=== PATIENT | female | born 1945 | race African-American/Black ===

== ENCOUNTER 2017-01-30 21:06 | Inpatient (IN) | payer MEDICARE, MEDICAID ==
[~2017-01-30] VITALS: Ht 162.6 cm; Wt 82.1 kg
[~2017-01-30 21:06] MED LIST: ASPI-1159 PO; BENA20TA3 PO; FURO-152 PO; IBUP-2028 PO; MULT-1146 PO; NITR0.4T49 SL; SERT50TA PO
[2017-01-30] MEDS ORDERED: MORPHINE SULFATE 2 MG/ML CPJ (NOT FOR IM USE) IV ONE (21:45)
[2017-01-30] MEDS ORDERED: SODIUM CHLORIDE 0.9% 1,000 ML IV ONE (21:45)
[2017-01-30] MEDS ORDERED: MORPHINE SULFATE 4 MG/ML CPJ (NOT FOR IM USE) IV NR (22:30)
[2017-01-30 23:03] LABS: BASOPHILS % 1.3 % (0.0-2.0); EOSINOPHILS % 3.8 % (0.0-5.0); HEMOGLOBIN. 13.7 g/dL (12.0-16.0); LYMPHOCYTES % 36.6 % (20.0-50.0); MEAN CORPUSCULAR HEMOGLOBIN 31.7 pg (28.0-32.0); MEAN CORPUSCULAR VOLUME 94.8 fL (81.0-99.0); MEAN PLATELET VOLUME 9.5 fl (7.4-10.4); MONOCYTES % 5.8 % (2.0-8.0); NEUTROPHILS % 52.5 % (40.0-76.0); PLATELET 209 x1000/uL (130-400); RED BLOOD CELL COUNT 4.33 mill/uL (4.2-5.4)
[2017-01-30 23:11] LABS: INR 1.1
[2017-01-30 23:19] LABS: CARBON DIOXIDE 31 mEq/L (21-32); CHLORIDE 106 mEq/L (98-107); TROPONIN I < 0.02 ng/mL (0.00-0.04)
[2017-01-30 23:39] LABS: CLARITY URINE CLEAR (CLEAR); COLOR URINE YELLOW (YELLOW); GLUCOSE URINE NEGATIVE (NEGATIVE); KETONES URINE NEGATIVE (NEGATIVE); LEUKOCYTE ESTERASE URINE TRACE (NEGATIVE); NITRITE URINE NEGATIVE (NEGATIVE); OCCULT BLOOD URINE NEGATIVE (NEGATIVE); PH URINE 5.5 (4.5-8.0); PROTEIN URINE NEGATIVE (NEGATIVE); SPECIFIC GRAVITY URINE 1.016 (1.005-1.030)
[2017-01-31] MEDS ORDERED: CEFTRIAXONE 1 G PREMIX 50 ML IV ONE (00:15)
[2017-01-31] MEDS ORDERED: ASPIRIN 325MG EC TABLET PO ONE (00:15)
[2017-01-31] MEDS ORDERED: IBUPROFEN 600MG TABLET PO ONE (03:00)
[2017-01-31] MEDS ORDERED: SODIUM CHLORIDE 0.9% 1,000 ML IV SCH (05:02)
[2017-01-31] MEDS ORDERED: ONDANSETRON HCL 4MG/2ML VIAL IV PRN (05:15)
[2017-01-31 09:10] VITALS: BP 139/85
[2017-01-31 16:00] VITALS: BP 161/92
[2017-01-31] MEDS ORDERED: ACETAMINOPHEN 650MG/20.3ML UDC PO PRN (16:30)
[2017-01-31] MEDS: IBUPROFEN 400MG TABLET PO PRN (17:16)
[2017-01-31 20:00] VITALS: BP 183/121
[2017-01-31 21:00] VITALS: BP 169/90
[2017-01-31] MEDS ORDERED: HYDRALAZINE 20MG/ML VIAL IV PRN (21:30)
[2017-01-31 21:45] VITALS: BP 166/88
[2017-01-31] MEDS: BENAZEPRIL 20MG TABLET PO SCH (21:56)
[2017-01-31 22:09] VITALS: BP 183/121
[2017-02-01] VITALS (7 sets, daily range): BP systolic 100–172; BP diastolic 66–101
[2017-02-01] MEDS: IBUPROFEN 400MG TABLET PO PRN ×2 (08:06→21:32)
[2017-02-01] MEDS: BENAZEPRIL 20MG TABLET PO SCH ×2 (08:15→21:10)
[2017-02-01] MEDS ORDERED: BENAZEPRIL 10MG TABLET PO SCH (09:00)
[2017-02-01] MEDS: THIAMINE HCL 100MG TABLET PO SCH (19:34)
[2017-02-01] MEDS: DILTIAZEM HCL 30MG TABLET PO SCH (19:34)
[2017-02-02] VITALS: BP 119/78
[2017-02-02] MEDS: DILTIAZEM HCL 30MG TABLET PO SCH ×5 (01:45→23:58)
[2017-02-02 04:00] VITALS: BP 111/77
[2017-02-02 08:00] VITALS: BP 109/68
[2017-02-02] MEDS: BENAZEPRIL 20MG TABLET PO SCH ×2 (08:46→20:13)
[2017-02-02] MEDS: THIAMINE HCL 100MG TABLET PO SCH (08:54)
[2017-02-02] MEDS: FUROSEMIDE 40MG/4ML VIAL IVP SCH (08:54)
[2017-02-02 20:00] VITALS: BP 100/68
[2017-02-02 23:58] VITALS: BP 92/61
[2017-02-03 00:47] LABS: VITAMIN B12 SERUM 162 pg/mL (211-911)
[2017-02-03 04:00] VITALS: BP 97/69
[2017-02-03] MEDS: DILTIAZEM HCL 30MG TABLET PO SCH ×2 (05:51→12:52)
[2017-02-03 07:38] VITALS: BP 82/53
[2017-02-03 08:10] VITALS: BP 108/72
[2017-02-03] MEDS: BENAZEPRIL 20MG TABLET PO SCH ×2 (08:18→21:00)
[2017-02-03] MEDS: THIAMINE HCL 100MG TABLET PO SCH (09:02)
[2017-02-03] MEDS: FUROSEMIDE 40MG/4ML VIAL IVP SCH (09:03)
[2017-02-03 11:51] VITALS: BP 121/70
[2017-02-03 15:48] VITALS: BP 105/70
[2017-02-03] MEDS: DILTIAZEM HCL 60MG TABLET PO SCH (18:00)
[2017-02-03 20:00] VITALS: BP 106/85
[2017-02-03] MEDS ORDERED: MAGNESIUM HYDROXIDE 400MG/5ML 30ML UDC PO PRN (23:45)
[2017-02-03] MEDS: SENNOSIDES 8.6MG TABLET PO PRN (23:57)
[2017-02-04] VITALS: BP 102/67
[2017-02-04 04:00] VITALS: BP 102/66
[2017-02-04] MEDS: DILTIAZEM HCL 60MG TABLET PO SCH ×4 (06:00→17:00)
[2017-02-04 07:39] VITALS: BP 102/63
[2017-02-04] MEDS: BENAZEPRIL 20MG TABLET PO SCH ×3 (09:00→21:03)
[2017-02-04] MEDS: THIAMINE HCL 100MG TABLET PO SCH (09:06)
[2017-02-04] MEDS: FUROSEMIDE 40MG/4ML VIAL IVP SCH (09:06)
[2017-02-04 12:00] VITALS: BP 103/80
[2017-02-04] MEDS ORDERED: IOHEXOL-350 100 ML BOTTLE ONE (15:18)
[2017-02-04 16:00] VITALS: BP 105/63
[2017-02-04] MEDS: SENNOSIDES 8.6MG TABLET PO PRN (21:00)
[2017-02-04 21:03] VITALS: BP 124/76
[2017-02-05] VITALS: BP 95/59
[2017-02-05 04:00] VITALS: BP 97/64
[2017-02-05] MEDS: DILTIAZEM HCL 60MG TABLET PO SCH ×4 (06:00→18:00)
[2017-02-05 08:00] VITALS: BP 95/58
[2017-02-05] MEDS: BENAZEPRIL 20MG TABLET PO SCH (08:18)
[2017-02-05] MEDS: THIAMINE HCL 100MG TABLET PO SCH (08:18)
[2017-02-05] MEDS: FUROSEMIDE 40MG/4ML VIAL IVP SCH (08:19)
[2017-02-05] MEDS: SENNOSIDES 8.6MG TABLET PO PRN (10:14)
[2017-02-05 12:00] VITALS: BP 101/76
[2017-02-05 15:52] VITALS: BP 99/69
[2017-02-05 18:10] VITALS: BP 92/64
== END 2017-02-05 18:45 | DRG 308 ==
LOC: ER 21:32 → 8WST 01-31 00:54 → EDBEDREQSVC 01-31 02:48 → ENRESERV 01-31 08:21 → CANBEDREQ 01-31 08:55
PROVIDERS: ADMIT Internal Medicine; ATTEND Internal Medicine
PROC: 4A00X4Z Measurement of Central Nervous Electrical Activity, External Approach (ICD-10-PCS; principal; 2017-02-04)
DX: I49.8 Other specified cardiac arrhythmias (principal); G93.41 Metabolic encephalopathy; I27.20 Pulmonary hypertension, unspecified; I13.0 Hypertensive heart and chronic kidney disease with heart failure and stage 1 through stage 4 chronic kidney disease, or unspecified chronic kidney disease; I50.32 Chronic diastolic (congestive) heart failure; R53.1 Weakness; F06.1 Catatonic disorder due to known physiological condition; I25.10 Atherosclerotic heart disease of native coronary artery without angina pectoris; K21.9 Gastro-esophageal reflux disease without esophagitis; E78.00 Pure hypercholesterolemia, unspecified; R49.0 Dysphonia; F99 Mental disorder, not otherwise specified; N18.9 Chronic kidney disease, unspecified; R62.7 Adult failure to thrive; L89.90 Pressure ulcer of unspecified site, unspecified stage; Z79.899 Other long term (current) drug therapy; Z90.710 Acquired absence of both cervix and uterus; Z91.012 Allergy to eggs; Z88.8 Allergy status to other drugs, medicaments and biological substances; Z91.018 Allergy to other foods; Z79.82 Long term (current) use of aspirin
CPT/HCPCS: 36415; 70450; 70551; 71010; 80053; 81001; 82565; 82607; 84443; 84484; 84520; 85025; 85610; 85730; 87086; 93005; 93306; 93970; 95816; 96361; 96365; 96375; 99285; A6261; J0360; J0696; J1940; J2270; J7030; Q9967

== ENCOUNTER 2018-05-18 12:51 | Inpatient (IN) | payer MEDICARE, MEDICAID ==
[~2018-05-18] VITALS: Ht 167.6 cm; Wt 60.8 kg
[~2018-05-18 12:51] MED LIST changes: +BENA20TA10 PO; -BENA20TA3 PO; +SERT50TA GT; -SERT50TA PO
[2018-05-18] MEDS ORDERED: VANCOMYCIN 1 G PREMIX 200 ML IV ONE (13:15)
[2018-05-18] MEDS ORDERED: SODIUM CHLORIDE 0.9% 1000ML BAG (SEPSIS BOLUS) IV ONE (13:15)
[2018-05-18] MEDS ORDERED: PIPERACILLIN/TAZ 3.375G PREMIX 50 ML IV ONE (13:15)
[2018-05-18] MEDS ORDERED: NOREPINEPHRINE 4 MG in DEXT 5% WATER 246 ML IV ONE ×3 (13:15→18:30)
[2018-05-18] MEDS ORDERED: NOREPINEPHRINE 4MG/250ML PMX 250 ML IV ONE (13:20)
[2018-05-18] MEDS ORDERED: LIDOCAINE HCL 1% 20ML VIAL (Pyxis) INJ ONE (13:32)
[2018-05-18] MEDS ORDERED: PROPOFOL 10MG/ML 100ML 100 ML IV SCH (13:45)
[2018-05-18 14:33] LABS: BG BASE EXCESS 0.8 mmol/L (-2.0-2.0); BG FRACTION INSPIRED OXYGEN 70; BG HCO3 ACT 22.8 mmol/L (22.0-26.0); BG PCO2 29.8 mmHg (35.0-45.0); BG PH 7.502 (7.350-7.450); BG PO2 214.2 mmHg (75.0-100.0); BG SAMPLE SITE RIGHT BRACHIAL; BG TIDAL VOLUME(mL) 450 mL; BG VENT MODE VENT - A/C; BG VENT RATE 14 set
[2018-05-18 14:56] LABS: HEMATOCRIT. 33.1 % (36.0-48.0); HEMOGLOBIN. 10.3 g/dL (12.0-16.0); MEAN CORPUSCULAR HEMOGLOBIN 29.7 pg (28.0-32.0); MEAN CORPUSCULAR VOLUME 95.3 fL (81.0-99.0); MEAN PLATELET VOLUME 8.2 fl (7.4-10.4); PLATELET 430 x1000/uL (130-400); RED BLOOD CELL COUNT 3.47 mill/uL (4.2-5.4)
[2018-05-18 15:05] LABS: CHLORIDE 108 mEq/L (98-107)
[2018-05-18 15:07] LABS: INR 1.1; PARTIAL THROMBOPLASTIN TIME 25.9 sec (23.4-31.0); PROTHROMBIN TIME 10.8 sec (9.1-11.1)
[2018-05-18] MEDS ORDERED: DOPAMINE 400MG/250ML PREMIX 250 ML IV ONE (15:15)
[2018-05-18] MEDS ORDERED: SUCCINYLCHOLINE CHLORIDE 200MG/10ML IV ONE ×2 (15:30→15:50)
[2018-05-18] MEDS ORDERED: ETOMIDATE 2MG/ML 10ML VIAL IV ONE (15:30)
[2018-05-18] MEDS ORDERED: NOREPINEPHRINE 4 MG in DEXT 5% WATER 246 ML IV NR (15:45)
[2018-05-18] MEDS ORDERED: NOREPINEPHRINE 4MG/250ML PMX 250 ML IV NR (15:45)
[2018-05-18 16:00] LABS: PLATELET ESTIMATE INCREASED
[2018-05-18] MEDS ORDERED: CLONIDINE 0.1MG TABLET PO PRN (17:15)
[2018-05-18] MEDS ORDERED: DOCUSATE SODIUM 100MG CAPSULE PO PRN (17:15)
[2018-05-18] MEDS ORDERED: GUAIFENESIN 200MG/10ML SUGAR FREE UDC PO PRN (17:15)
[2018-05-18] MEDS ORDERED: MAGNESIUM/ALUMINUM HYDROXIDE/SIMETHICONE 30ML UDC PO PRN (17:15)
[2018-05-18] MEDS ORDERED: ENOXAPARIN 40MG/0.4ML SYR SUBCUT SCH (17:15)
[2018-05-18] MEDS ORDERED: HYDROCODONE/ACETAMINOPHEN 5/325MG TABLET PO PRN (17:15)
[2018-05-18] MEDS ORDERED: VANCOMYCIN 1 G PREMIX 200 ML IV SCH (17:15)
[2018-05-18] MEDS ORDERED: DIPHENHYDRAMINE 50MG/ML VIAL IV PRN (17:15)
[2018-05-18] MEDS ORDERED: LORAZEPAM 2MG/ML CPJ IV PRN (17:15)
[2018-05-18] MEDS ORDERED: ONDANSETRON HCL 4MG/2ML INJ IV PRN (17:15)
[2018-05-18 18:10] LABS: CLARITY URINE TURBID (CLEAR); COLOR URINE ORANGE (YELLOW); KETONES URINE NEGATIVE (NEGATIVE); LEUKOCYTE ESTERASE URINE 3+ (NEGATIVE); NITRITE URINE NEGATIVE (NEGATIVE); OCCULT BLOOD URINE 3+ (NEGATIVE); PH URINE 8.5 (4.5-8.0); PROTEIN URINE 3+ (NEGATIVE)
[2018-05-18] MEDS ORDERED: IBUPROFEN 100MG/5ML UDC PO ONE (18:15)
[2018-05-18 23:00] VITALS: BP 98/45
[2018-05-18] MEDS ORDERED: PROPOFOL 10MG/ML 100ML 100 ML IV PRN (23:00)
[2018-05-18 23:49] LABS: CREATINE KINASE MB FRACTION 3.3 ng/mL (0.5-3.6)
[2018-05-19] VITALS (97 sets, daily range): BP systolic 66–143; BP diastolic 40–90
[2018-05-19] MEDS ORDERED: HYDROMORPHONE HCL/PF 2MG/ML CPJ IV PRN (00:10)
[2018-05-19] MEDS ORDERED: NOREPINEPHRINE 32 MG in DEXT 5% WATER 468 ML IV PRN (00:30)
[2018-05-19] MEDS: NOREPINEPHRINE 32 MG in DEXT 5% WATER 468 ML IV PRN ×2 (00:49→22:49)
[2018-05-19] MEDS: PIPERACILLIN/TAZ 2.25G PREMIX 50 ML IV SCH ×3 (00:50→12:24)
[2018-05-19] MEDS: SODIUM CHLORIDE 0.9% INJ 3ML FLUSH IVF SCH ×4 (00:50→21:04)
[2018-05-19] MEDS: DEXT 5%/0.45% NACL 1000ML 1,000 ML IV SCH ×2 (00:50→21:04)
[2018-05-19] MEDS ORDERED: PIPERACILLIN/TAZ 3.375G PREMIX 50 ML IV SCH ×2 (01:00→18:00)
[2018-05-19 05:37] LABS: BASOPHILS % 0.5 % (0.0-2.0); EOSINOPHILS % 0.8 % (0.0-5.0); HEMATOCRIT. 30.4 % (36.0-48.0); HEMOGLOBIN. 9.8 g/dL (12.0-16.0); LYMPHOCYTES % 8.5 % (20.0-50.0); MEAN CORPUSCULAR HEMOGLOBIN 29.7 pg (28.0-32.0); MEAN CORPUSCULAR VOLUME 92.4 fL (81.0-99.0); MEAN PLATELET VOLUME 8.2 fl (7.4-10.4); MONOCYTES % 5.2 % (2.0-8.0); PLATELET 374 x1000/uL (130-400); RED BLOOD CELL COUNT 3.29 mill/uL (4.2-5.4); RED CELL DISTRIBUTION WIDTH 15.7 % (11.6-14.6)
[2018-05-19 05:39] LABS: CHLORIDE 107 mEq/L (98-107)
[2018-05-19 05:52] LABS: CREATINE KINASE MB FRACTION 4.8 ng/mL (0.5-3.6); LDL CHOLESTEROL 36 mg/dL (5-100)
[2018-05-19 05:54] LABS: CREATINE KINASE 891 IU/L (26-192); HDL CHOLESTEROL 54 mg/dL (40-59); T4 FREE 1.51 ng/dL (0.76-1.46)
[2018-05-19] MEDS ORDERED: POTASSIUM CHLORIDE 20MEQ/PACKET PO NR (08:00)
[2018-05-19] MEDS: IPRATROPIUM/ALBUTEROL 0.5-3(2.5)MG/3ML NEB INH PRN (08:52)
[2018-05-19 08:58] LABS: BG CARBOXYHEMOGLOBIN 1.1 % (0.5-1.5); BG DEOXYHEMOGLOBIN 2.9 % (0.0-5.0); BG FRACTION INSPIRED OXYGEN 50; BG HCO3 ACT 23.1 mmol/L (22.0-26.0); BG METHEMOGLOBIN 0.1 % (0.0-1.5); BG OXYGEN SATURATION 97.1 % (92.0-98.5); BG OXYHEMOGLOBIN 95.9 % (94.0-97.0); BG PCO2 28.8 mmHg (35.0-45.0); BG PH 7.523 (7.350-7.450); BG SAMPLE SITE LEFT BRACHIAL; BG TIDAL VOLUME(mL) 450 mL; BG TOTAL HEMOGLOBIN 10.4 g/dL (12.0-18.0); BG VENT MODE VENT - A/C; BG VENT RATE 14 set
[2018-05-19] MEDS ORDERED: ASPIRIN 81MG EC TABLET PO SCH (09:00)
[2018-05-19] MEDS ORDERED: PROPOFOL 10MG/ML 100ML 100 ML IV PRN (09:00)
[2018-05-19] MEDS ORDERED: ENOXAPARIN 30MG/0.3ML SYR SUBCUT SCH (09:00)
[2018-05-19] MEDS ORDERED: VANCOMYCIN 1 G PREMIX 200 ML IV SCH (10:00)
[2018-05-19] MEDS: VANCOMYCIN 1 G PREMIX 200 ML IV SCH (11:09)
[2018-05-19] MEDS: IPRATROPIUM BROMIDE (0.02%) 0.5MG/2.5ML NEB HHN SCH ×2 (15:56→20:24)
[2018-05-19] MEDS: PIPERACILLIN/TAZ 3.375G PREMIX 50 ML IV SCH (21:03)
[2018-05-20] VITALS (97 sets, daily range): BP systolic 85–145; BP diastolic 51–95
[2018-05-20] MEDS: IPRATROPIUM BROMIDE (0.02%) 0.5MG/2.5ML NEB HHN SCH ×6 (00:21→16:37)
[2018-05-20] MEDS: VANCOMYCIN 1 G PREMIX 200 ML IV SCH (03:51)
[2018-05-20] MEDS: PIPERACILLIN/TAZ 3.375G PREMIX 50 ML IV SCH ×4 (03:52→21:37)
[2018-05-20] MEDS: SODIUM CHLORIDE 0.9% INJ 3ML FLUSH IVF SCH ×3 (05:35→21:37)
[2018-05-20 06:18] LABS: BASOPHILS % 0.5 % (0.0-2.0); HEMATOCRIT. 29.3 % (36.0-48.0); HEMOGLOBIN. 9.4 g/dL (12.0-16.0); LYMPHOCYTES % 8.6 % (20.0-50.0); MEAN CORPUSCULAR HEMOGLOBIN 29.8 pg (28.0-32.0); MEAN CORPUSCULAR VOLUME 92.6 fL (81.0-99.0); MEAN PLATELET VOLUME 8.1 fl (7.4-10.4); MONOCYTES % 3.5 % (2.0-8.0); NEUTROPHILS % 86.4 % (40.0-76.0); PLATELET 322 x1000/uL (130-400); RED BLOOD CELL COUNT 3.16 mill/uL (4.2-5.4); RED CELL DISTRIBUTION WIDTH 15.9 % (11.6-14.6)
[2018-05-20 06:38] LABS: CHLORIDE 107 mEq/L (98-107)
[2018-05-20 07:02] LABS: CREATINE KINASE 1488 IU/L (26-192)
[2018-05-20 07:48] LABS: BG CARBOXYHEMOGLOBIN 0.2 % (0.5-1.5); BG DEOXYHEMOGLOBIN 0.8 % (0.0-5.0); BG FRACTION INSPIRED OXYGEN 40; BG HCO3 ACT 22.3 mmol/L (22.0-26.0); BG METHEMOGLOBIN 0.3 % (0.0-1.5); BG OXYGEN SATURATION 99.2 % (92.0-98.5); BG OXYHEMOGLOBIN 98.7 % (94.0-97.0); BG PCO2 27.9 mmHg (35.0-45.0); BG PO2 140.5 mmHg (75.0-100.0); BG SAMPLE SITE LEFT BRACHIAL; BG TIDAL VOLUME(mL) 450 mL; BG TOTAL HEMOGLOBIN 9.5 g/dL (12.0-18.0); BG VENT MODE VENT - A/C; BG VENT RATE 12 set
[2018-05-20] MEDS: DEXT 5%/0.45% NACL 1000ML 1,000 ML IV SCH (09:54)
[2018-05-20] MEDS: THIAMINE HCL 100MG TABLET GT SCH (18:24)
[2018-05-20] MEDS: PROPOFOL 10MG/ML 100ML 100 ML IV PRN (18:28)
[2018-05-20] MEDS: IPRATROPIUM/ALBUTEROL 0.5-3(2.5)MG/3ML NEB INH PRN (20:34)
[2018-05-21] VITALS (89 sets, daily range): BP systolic 72–126; BP diastolic 46–78
[2018-05-21] MEDS: IPRATROPIUM BROMIDE (0.02%) 0.5MG/2.5ML NEB HHN SCH ×7 (00:51→23:55)
[2018-05-21] MEDS: DEXT 5%/0.45% NACL 1000ML 1,000 ML IV SCH (02:06)
[2018-05-21] MEDS: PIPERACILLIN/TAZ 3.375G PREMIX 50 ML IV SCH ×4 (02:06→21:11)
[2018-05-21] MEDS: SODIUM CHLORIDE 0.9% INJ 3ML FLUSH IVF SCH ×3 (05:23→22:00)
[2018-05-21] MEDS: PROPOFOL 10MG/ML 100ML 100 ML IV PRN ×3 (05:24→22:19)
[2018-05-21 05:45] LABS: BASOPHILS % 0.4 % (0.0-2.0); EOSINOPHILS % 4.3 % (0.0-5.0); HEMATOCRIT. 26.6 % (36.0-48.0); HEMOGLOBIN. 8.5 g/dL (12.0-16.0); MEAN CORPUSCULAR HEMOGLOBIN 29.8 pg (28.0-32.0); MEAN CORPUSCULAR VOLUME 93.3 fL (81.0-99.0); MEAN PLATELET VOLUME 7.5 fl (7.4-10.4); MONOCYTES % 4.6 % (2.0-8.0); NEUTROPHILS % 79.7 % (40.0-76.0); PLATELET 287 x1000/uL (130-400); RED BLOOD CELL COUNT 2.85 mill/uL (4.2-5.4); RED CELL DISTRIBUTION WIDTH 16.1 % (11.6-14.6)
[2018-05-21 05:52] LABS: CHLORIDE 106 mEq/L (98-107)
[2018-05-21 08:41] LABS: BG CARBOXYHEMOGLOBIN 0.2 % (0.5-1.5); BG DEOXYHEMOGLOBIN 1.1 % (0.0-5.0); BG FRACTION INSPIRED OXYGEN 35; BG HCO3 ACT 25.2 mmol/L (22.0-26.0); BG METHEMOGLOBIN 0.8 % (0.0-1.5); BG OXYGEN SATURATION 98.9 % (92.0-98.5); BG OXYHEMOGLOBIN 97.9 % (94.0-97.0); BG PCO2 30.2 mmHg (35.0-45.0); BG SAMPLE SITE RIGHT BRACHIAL; BG TIDAL VOLUME(mL) 450 mL; BG TOTAL HEMOGLOBIN 9.5 g/dL (12.0-18.0); BG VENT MODE VENT - A/C; BG VENT RATE 12 set
[2018-05-21] MEDS ORDERED: POTASSIUM CHLORIDE 20MEQ/PACKET PO NR (10:00)
[2018-05-21] MEDS: PANTOPRAZOLE SODIUM 40 MG/VIAL IV SCH (10:57)
[2018-05-21] MEDS: THIAMINE HCL 100MG TABLET GT SCH ×2 (10:57→17:32)
[2018-05-21] MEDS ORDERED: VANCOMYCIN 1 G PREMIX 200 ML IV SCH (14:00)
[2018-05-21] MEDS: NOREPINEPHRINE 32 MG in DEXT 5% WATER 468 ML IV PRN (14:48)
[2018-05-22] VITALS (96 sets, daily range): BP systolic 73–165; BP diastolic 47–90
[2018-05-22] MEDS: IPRATROPIUM BROMIDE (0.02%) 0.5MG/2.5ML NEB HHN SCH ×5 (03:50→20:54)
[2018-05-22] MEDS: PIPERACILLIN/TAZ 3.375G PREMIX 50 ML IV SCH ×4 (04:18→21:03)
[2018-05-22 05:07] LABS: BG DEOXYHEMOGLOBIN 1.1 % (0.0-5.0); BG FRACTION INSPIRED OXYGEN 35; BG HCO3 ACT 23.9 mmol/L (22.0-26.0); BG METHEMOGLOBIN 0.3 % (0.0-1.5); BG OXYGEN SATURATION 98.9 % (92.0-98.5); BG OXYHEMOGLOBIN 98.6 % (94.0-97.0); BG PCO2 27.6 mmHg (35.0-45.0); BG PH 7.555 (7.350-7.450); BG PIP 21 cmH2O; BG PO2 137.4 mmHg (75.0-100.0); BG SAMPLE SITE RIGHT RADIAL; BG TIDAL VOLUME(mL) 450 mL; BG TOTAL HEMOGLOBIN 9.4 g/dL (12.0-18.0); BG VENT MODE VENT - A/C; BG VENT RATE 12 set
[2018-05-22 05:42] LABS: CHLORIDE 109 mEq/L (98-107)
[2018-05-22 05:48] LABS: PHOSPHORUS 3.1 mg/dL (2.5-4.9)
[2018-05-22 05:54] LABS: BASOPHILS % 0.4 % (0.0-2.0); EOSINOPHILS % 4.1 % (0.0-5.0); HEMATOCRIT. 27.8 % (36.0-48.0); MEAN CORPUSCULAR HEMOGLOBIN 29.7 pg (28.0-32.0); MEAN CORPUSCULAR VOLUME 91.6 fL (81.0-99.0); MEAN PLATELET VOLUME 7.6 fl (7.4-10.4); MONOCYTES % 4.3 % (2.0-8.0); NEUTROPHILS % 80.2 % (40.0-76.0); PLATELET 299 x1000/uL (130-400); RED BLOOD CELL COUNT 3.03 mill/uL (4.2-5.4)
[2018-05-22] MEDS: SODIUM CHLORIDE 0.9% INJ 3ML FLUSH IVF SCH ×3 (06:00→22:36)
[2018-05-22] MEDS ORDERED: POTASSIUM CHLORIDE 20MEQ/PACKET PO NR (07:45)
[2018-05-22] MEDS: PANTOPRAZOLE SODIUM 40 MG/VIAL IV SCH (08:20)
[2018-05-22] MEDS: THIAMINE HCL 100MG TABLET GT SCH ×2 (08:20→17:43)
[2018-05-22] MEDS: PROPOFOL 10MG/ML 100ML 100 ML IV PRN ×2 (08:23→15:26)
[2018-05-22] MEDS: SODIUM CHLORIDE 0.9% 1,000 ML IV SCH ×2 (12:37→22:37)
[2018-05-22] MEDS: VANCOMYCIN 1 G PREMIX 200 ML IV SCH (22:35)
[2018-05-23] VITALS (71 sets, daily range): BP systolic 81–128; BP diastolic 55–87
[2018-05-23] MEDS: IPRATROPIUM BROMIDE (0.02%) 0.5MG/2.5ML NEB HHN SCH ×5 (00:12→21:02)
[2018-05-23] MEDS: PIPERACILLIN/TAZ 3.375G PREMIX 50 ML IV SCH ×4 (03:08→21:17)
[2018-05-23 05:37] LABS: BG BASE EXCESS -0.3 mmol/L (-2.0-2.0); BG CARBOXYHEMOGLOBIN 0.2 % (0.5-1.5); BG DEOXYHEMOGLOBIN 1.4 % (0.0-5.0); BG FRACTION INSPIRED OXYGEN 35; BG HCO3 ACT 22.4 mmol/L (22.0-26.0); BG METHEMOGLOBIN 0.3 % (0.0-1.5); BG OXYGEN SATURATION 98.6 % (92.0-98.5); BG OXYHEMOGLOBIN 98.1 % (94.0-97.0); BG PCO2 30.1 mmHg (35.0-45.0); BG PO2 133.8 mmHg (75.0-100.0); BG SAMPLE SITE RIGHT RADIAL; BG TIDAL VOLUME(mL) 450 mL; BG TOTAL HEMOGLOBIN 10.3 g/dL (12.0-18.0); BG VENT MODE VENT - A/C; BG VENT RATE 12 set
[2018-05-23 05:45] LABS: BASOPHILS % 0.6 % (0.0-2.0); EOSINOPHILS % 4.7 % (0.0-5.0); HEMATOCRIT. 25.6 % (36.0-48.0); HEMOGLOBIN. 8.4 g/dL (12.0-16.0); LYMPHOCYTES % 11.9 % (20.0-50.0); MEAN CORPUSCULAR VOLUME 91.8 fL (81.0-99.0); MEAN PLATELET VOLUME 7.3 fl (7.4-10.4); MONOCYTES % 5.5 % (2.0-8.0); NEUTROPHILS % 77.3 % (40.0-76.0); PLATELET 313 x1000/uL (130-400); RED BLOOD CELL COUNT 2.79 mill/uL (4.2-5.4); RED CELL DISTRIBUTION WIDTH 15.9 % (11.6-14.6)
[2018-05-23] MEDS: PROPOFOL 10MG/ML 100ML 100 ML IV PRN ×2 (06:02→14:16)
[2018-05-23] MEDS: SODIUM CHLORIDE 0.9% INJ 3ML FLUSH IVF SCH ×3 (06:07→21:17)
[2018-05-23 06:15] LABS: CHLORIDE 110 mEq/L (98-107)
[2018-05-23] MEDS ORDERED: POTASSIUM CHLORIDE 20MEQ/PACKET PO SCH (08:30)
[2018-05-23] MEDS: THIAMINE HCL 100MG TABLET GT SCH ×2 (09:00→18:10)
[2018-05-23] MEDS: PANTOPRAZOLE SODIUM 40 MG/VIAL IV SCH (10:16)
[2018-05-23] MEDS: SODIUM CHLORIDE 0.9% 1,000 ML IV SCH ×2 (12:14→18:11)
[2018-05-23] MEDS ORDERED: THIAMINE HCL 100MG TABLET GT SCH (17:00)
[2018-05-23] MEDS: VANCOMYCIN 1 G PREMIX 200 ML IV SCH (18:10)
[2018-05-24] VITALS (68 sets, daily range): BP systolic 86–150; BP diastolic 42–94
[2018-05-24] MEDS: PROPOFOL 10MG/ML 100ML 100 ML IV PRN (00:35)
[2018-05-24] MEDS: IPRATROPIUM BROMIDE (0.02%) 0.5MG/2.5ML NEB HHN SCH ×6 (00:52→20:52)
[2018-05-24] MEDS: SODIUM CHLORIDE 0.9% 1,000 ML IV SCH (01:18)
[2018-05-24] MEDS: PIPERACILLIN/TAZ 3.375G PREMIX 50 ML IV SCH ×4 (05:00→20:41)
[2018-05-24] MEDS: SODIUM CHLORIDE 0.9% INJ 3ML FLUSH IVF SCH ×3 (05:56→20:41)
[2018-05-24 06:36] LABS: BASOPHILS % 0.4 % (0.0-2.0); EOSINOPHILS % 3.8 % (0.0-5.0); HEMATOCRIT. 25.9 % (36.0-48.0); HEMOGLOBIN. 8.3 g/dL (12.0-16.0); MEAN CORPUSCULAR HEMOGLOBIN 29.8 pg (28.0-32.0); MEAN CORPUSCULAR VOLUME 93.1 fL (81.0-99.0); MEAN PLATELET VOLUME 7.5 fl (7.4-10.4); MONOCYTES % 5.7 % (2.0-8.0); NEUTROPHILS % 77.1 % (40.0-76.0); PLATELET 310 x1000/uL (130-400); RED BLOOD CELL COUNT 2.79 mill/uL (4.2-5.4); RED CELL DISTRIBUTION WIDTH 16.1 % (11.6-14.6)
[2018-05-24 07:05] LABS: CHLORIDE 113 mEq/L (98-107)
[2018-05-24 07:24] LABS: PHOSPHORUS 2.7 mg/dL (2.5-4.9)
[2018-05-24] MEDS ORDERED: POTASSIUM CHLORIDE 20MEQ/PACKET PO NR (08:15)
[2018-05-24 08:31] LABS: BG BASE EXCESS -4.7 mmol/L (-2.0-2.0); BG CARBOXYHEMOGLOBIN 0.5 % (0.5-1.5); BG DEOXYHEMOGLOBIN 0.9 % (0.0-5.0); BG FRACTION INSPIRED OXYGEN 35; BG HCO3 ACT 18.7 mmol/L (22.0-26.0); BG METHEMOGLOBIN 0.1 % (0.0-1.5); BG OXYGEN SATURATION 99.1 % (92.0-98.5); BG OXYHEMOGLOBIN 98.5 % (94.0-97.0); BG PCO2 28.1 mmHg (35.0-45.0); BG PH 7.441 (7.350-7.450); BG PO2 175.9 mmHg (75.0-100.0); BG PRESSURE SUPPORT 14; BG SAMPLE SITE LEFT RADIAL; BG TIDAL VOLUME(mL) 450 mL; BG VENT MODE VENT - SIMV; BG VENT RATE 10 set
[2018-05-24] MEDS: PANTOPRAZOLE SODIUM 40 MG/VIAL IV SCH (09:52)
[2018-05-24] MEDS: VANCOMYCIN 750 MG PREMIX 150 ML IV SCH ×2 (11:00→22:19)
[2018-05-24 13:06] LABS: BG BASE EXCESS -2.9 mmol/L (-2.0-2.0); BG CARBOXYHEMOGLOBIN 0.2 % (0.5-1.5); BG DEOXYHEMOGLOBIN 1.3 % (0.0-5.0); BG FRACTION INSPIRED OXYGEN 35; BG HCO3 ACT 20.7 mmol/L (22.0-26.0); BG METHEMOGLOBIN 0.1 % (0.0-1.5); BG OXYGEN SATURATION 98.7 % (92.0-98.5); BG OXYHEMOGLOBIN 98.4 % (94.0-97.0); BG PCO2 31.5 mmHg (35.0-45.0); BG PH 7.436 (7.350-7.450); BG PO2 145.1 mmHg (75.0-100.0); BG PRESSURE SUPPORT 8; BG SAMPLE SITE LEFT RADIAL; BG TOTAL HEMOGLOBIN 9.3 g/dL (12.0-18.0); BG VENT MODE VENT - CPAP
[2018-05-25] VITALS (66 sets, daily range): BP systolic 91–128; BP diastolic 57–87
[2018-05-25] MEDS: IPRATROPIUM BROMIDE (0.02%) 0.5MG/2.5ML NEB HHN SCH ×6 (00:44→20:18)
[2018-05-25] MEDS: PIPERACILLIN/TAZ 3.375G PREMIX 50 ML IV SCH ×2 (02:57→09:20)
[2018-05-25 06:27] LABS: BASOPHILS % 0.6 % (0.0-2.0); EOSINOPHILS % 3.5 % (0.0-5.0); HEMATOCRIT. 27.8 % (36.0-48.0); HEMOGLOBIN. 8.9 g/dL (12.0-16.0); LYMPHOCYTES % 13.9 % (20.0-50.0); MEAN CORPUSCULAR HEMOGLOBIN 29.7 pg (28.0-32.0); MEAN CORPUSCULAR VOLUME 93.3 fL (81.0-99.0); MEAN PLATELET VOLUME 7.9 fl (7.4-10.4); MONOCYTES % 6.3 % (2.0-8.0); NEUTROPHILS % 75.7 % (40.0-76.0); PLATELET 345 x1000/uL (130-400); RED BLOOD CELL COUNT 2.98 mill/uL (4.2-5.4); RED CELL DISTRIBUTION WIDTH 15.6 % (11.6-14.6)
[2018-05-25 07:03] LABS: CHLORIDE 112 mEq/L (98-107)
[2018-05-25] MEDS: PANTOPRAZOLE SODIUM 40 MG/VIAL IV SCH (09:20)
[2018-05-25] MEDS: SODIUM CHLORIDE 0.9% INJ 3ML FLUSH IVF SCH ×2 (14:29→22:00)
[2018-05-25] MEDS: CEFAZOLIN 1000MG PREMIX 50 ML IV SCH (15:34)
[2018-05-25] MEDS: SULFAMETHOXAZOLE/TRIMETHOPRIM 800/160MG TABLET PO SCH (17:21)
[2018-05-26] VITALS (45 sets, daily range): BP systolic 86–143; BP diastolic 64–105
[2018-05-26] MEDS: IPRATROPIUM BROMIDE (0.02%) 0.5MG/2.5ML NEB HHN SCH ×6 (00:11→20:33)
[2018-05-26] MEDS: CEFAZOLIN 1000MG PREMIX 50 ML IV SCH ×4 (00:13→23:34)
[2018-05-26] MEDS: SODIUM CHLORIDE 0.9% INJ 3ML FLUSH IVF SCH ×3 (06:15→22:00)
[2018-05-26] MEDS: PANTOPRAZOLE SODIUM 40 MG/VIAL IV SCH (09:52)
[2018-05-26] MEDS: SULFAMETHOXAZOLE/TRIMETHOPRIM 800/160MG TABLET PO SCH ×2 (09:52→17:10)
[2018-05-27] VITALS: BP 132/77
[2018-05-27] MEDS: IPRATROPIUM BROMIDE (0.02%) 0.5MG/2.5ML NEB HHN SCH ×6 (00:19→22:04)
[2018-05-27 04:00] VITALS: BP 108/72
[2018-05-27] MEDS: SODIUM CHLORIDE 0.9% INJ 3ML FLUSH IVF SCH ×3 (06:31→23:36)
[2018-05-27 07:14] LABS: BASOPHILS % 0.5 % (0.0-2.0); EOSINOPHILS % 2.4 % (0.0-5.0); HEMATOCRIT. 27.7 % (36.0-48.0); HEMOGLOBIN. 9.3 g/dL (12.0-16.0); LYMPHOCYTES % 12.7 % (20.0-50.0); MEAN CORPUSCULAR HEMOGLOBIN 30.2 pg (28.0-32.0); MEAN CORPUSCULAR VOLUME 90.2 fL (81.0-99.0); MEAN PLATELET VOLUME 7.1 fl (7.4-10.4); MONOCYTES % 4.1 % (2.0-8.0); NEUTROPHILS % 80.3 % (40.0-76.0); PLATELET 436 x1000/uL (130-400); RED BLOOD CELL COUNT 3.07 mill/uL (4.2-5.4)
[2018-05-27 07:35] LABS: CHLORIDE 114 mEq/L (98-107)
[2018-05-27 08:00] VITALS: BP 122/66
[2018-05-27] MEDS: ASCORBIC ACID 500 MG TABLET GT SCH (09:15)
[2018-05-27] MEDS: PANTOPRAZOLE SODIUM 40 MG/VIAL IV SCH (09:15)
[2018-05-27] MEDS: ZINC SULFATE 220 MG ( 50 ) CAPSULE GT SCH (09:15)
[2018-05-27] MEDS: CEFAZOLIN 1000MG PREMIX 50 ML IV SCH ×2 (09:16→17:34)
[2018-05-27] MEDS ORDERED: POTASSIUM CHLORIDE 20MEQ/PACKET PO NR ×2 (10:00→20:30)
[2018-05-27 12:00] VITALS: BP 102/63
[2018-05-27 16:00] VITALS: BP 93/59
[2018-05-27] MEDS: SULFAMETHOXAZOLE/TRIMETHOPRIM 800/160MG TABLET PO SCH ×2 (17:34→17:35)
[2018-05-27 20:00] VITALS: BP 108/61
[2018-05-28] VITALS (7 sets, daily range): BP systolic 66–123; BP diastolic 64–78
[2018-05-28] MEDS: CEFAZOLIN 1000MG PREMIX 50 ML IV SCH ×3 (00:21→17:59)
[2018-05-28] MEDS: IPRATROPIUM BROMIDE (0.02%) 0.5MG/2.5ML NEB HHN SCH ×5 (02:43→20:18)
[2018-05-28] MEDS: SODIUM CHLORIDE 0.9% INJ 3ML FLUSH IVF SCH ×3 (06:45→21:57)
[2018-05-28 07:06] LABS: BASOPHILS % 0.4 % (0.0-2.0); EOSINOPHILS % 1.9 % (0.0-5.0); HEMATOCRIT. 25.9 % (36.0-48.0); HEMOGLOBIN. 8.3 g/dL (12.0-16.0); LYMPHOCYTES % 11.9 % (20.0-50.0); MEAN CORPUSCULAR HEMOGLOBIN 29.1 pg (28.0-32.0); MEAN CORPUSCULAR VOLUME 90.5 fL (81.0-99.0); MONOCYTES % 4.2 % (2.0-8.0); NEUTROPHILS % 81.6 % (40.0-76.0); PLATELET 419 x1000/uL (130-400); RED BLOOD CELL COUNT 2.87 mill/uL (4.2-5.4)
[2018-05-28 07:36] LABS: CHLORIDE 116 mEq/L (98-107)
[2018-05-28 07:45] LABS: PHOSPHORUS 1.8 mg/dL (2.5-4.9)
[2018-05-28] MEDS: PANTOPRAZOLE SODIUM 40 MG/VIAL IV SCH (09:00)
[2018-05-28] MEDS: SULFAMETHOXAZOLE/TRIMETHOPRIM 800/160MG TABLET PO SCH ×2 (09:12→17:59)
[2018-05-28] MEDS: ZINC SULFATE 220 MG ( 50 ) CAPSULE GT SCH (09:12)
[2018-05-28] MEDS: ASCORBIC ACID 500 MG TABLET GT SCH (09:13)
[2018-05-29] VITALS: BP 102/74
[2018-05-29] MEDS: CEFAZOLIN 1000MG PREMIX 50 ML IV SCH ×4 (00:08→23:35)
[2018-05-29] MEDS: IPRATROPIUM BROMIDE (0.02%) 0.5MG/2.5ML NEB HHN SCH ×7 (00:43→20:56)
[2018-05-29 04:00] VITALS: BP 108/72
[2018-05-29] MEDS: SODIUM CHLORIDE 0.9% INJ 3ML FLUSH IVF SCH (05:30)
[2018-05-29 08:00] VITALS: BP 101/65
[2018-05-29] MEDS: PANTOPRAZOLE SODIUM 40 MG/VIAL IV SCH (10:09)
[2018-05-29] MEDS: ZINC SULFATE 220 MG ( 50 ) CAPSULE GT SCH (10:09)
[2018-05-29] MEDS: SULFAMETHOXAZOLE/TRIMETHOPRIM 800/160MG TABLET PO SCH ×2 (10:09→17:35)
[2018-05-29] MEDS: ASCORBIC ACID 500 MG TABLET GT SCH (10:09)
[2018-05-29 12:20] VITALS: BP 110/62
[2018-05-29 16:15] VITALS: BP 112/64
[2018-05-29 20:00] VITALS: BP 120/80
[2018-05-30] VITALS: BP 110/70
[2018-05-30] MEDS: IPRATROPIUM BROMIDE (0.02%) 0.5MG/2.5ML NEB HHN SCH ×5 (01:06→16:56)
[2018-05-30 04:00] VITALS: BP 113/64
[2018-05-30 08:00] VITALS: BP 117/77
[2018-05-30] MEDS: ASCORBIC ACID 500 MG TABLET GT SCH (08:49)
[2018-05-30] MEDS: SULFAMETHOXAZOLE/TRIMETHOPRIM 800/160MG TABLET PO SCH (08:49)
[2018-05-30] MEDS: PANTOPRAZOLE SODIUM 40 MG/VIAL IV SCH (08:49)
[2018-05-30] MEDS: CEFAZOLIN 1000MG PREMIX 50 ML IV SCH ×2 (08:49→15:46)
[2018-05-30] MEDS: ZINC SULFATE 220 MG ( 50 ) CAPSULE GT SCH (08:49)
[2018-05-30 09:46] LABS: BASOPHILS % 0.3 % (0.0-2.0); EOSINOPHILS % 2.4 % (0.0-5.0); HEMATOCRIT. 25.2 % (36.0-48.0); HEMOGLOBIN. 8.1 g/dL (12.0-16.0); MEAN CORPUSCULAR HEMOGLOBIN 29.2 pg (28.0-32.0); MEAN CORPUSCULAR VOLUME 90.7 fL (81.0-99.0); MEAN PLATELET VOLUME 6.9 fl (7.4-10.4); MONOCYTES % 3.8 % (2.0-8.0); NEUTROPHILS % 79.5 % (40.0-76.0); PLATELET 386 x1000/uL (130-400); RED BLOOD CELL COUNT 2.78 mill/uL (4.2-5.4); RED CELL DISTRIBUTION WIDTH 16.4 % (11.6-14.6)
[2018-05-30 10:07] LABS: CHLORIDE 112 mEq/L (98-107)
[2018-05-30 10:13] LABS: PHOSPHORUS 2.2 mg/dL (2.5-4.9)
[2018-05-30 11:56] VITALS: BP 107/70
[2018-05-30] MEDS ORDERED: MAGNESIUM 2 G PREMIX 50 ML IV SCH (12:00)
[2018-05-30] MEDS ORDERED: POTASSIUM PHOS,M-BASIC-D-BASIC 15 MMOL in DEXT 5% WATER 245 ML IV SCH (12:00)
[2018-05-30 16:00] VITALS: BP 103/68
[2018-05-30 20:00] VITALS: BP 116/79
[2018-05-31] VITALS: BP 107/58
[2018-05-31] MEDS: IPRATROPIUM BROMIDE (0.02%) 0.5MG/2.5ML NEB HHN SCH ×5 (00:32→14:38)
[2018-05-31] MEDS: CEFAZOLIN 1000MG PREMIX 50 ML IV SCH ×3 (01:49→16:51)
[2018-05-31 04:00] VITALS: BP 106/64
[2018-05-31 07:52] LABS: BASOPHILS % 0.5 % (0.0-2.0); EOSINOPHILS % 2.1 % (0.0-5.0); HEMATOCRIT. 25.2 % (36.0-48.0); LYMPHOCYTES % 17.2 % (20.0-50.0); MEAN CORPUSCULAR VOLUME 91.2 fL (81.0-99.0); MONOCYTES % 5.1 % (2.0-8.0); NEUTROPHILS % 75.1 % (40.0-76.0); PLATELET 403 x1000/uL (130-400); RED BLOOD CELL COUNT 2.77 mill/uL (4.2-5.4); RED CELL DISTRIBUTION WIDTH 16.7 % (11.6-14.6)
[2018-05-31 08:00] VITALS: BP 108/74
[2018-05-31 08:04] LABS: CHLORIDE 111 mEq/L (98-107)
[2018-05-31 08:10] LABS: PHOSPHORUS 2.8 mg/dL (2.5-4.9)
[2018-05-31] MEDS: ASCORBIC ACID 500 MG TABLET GT SCH (10:12)
[2018-05-31] MEDS: ZINC SULFATE 220 MG ( 50 ) CAPSULE GT SCH (10:12)
[2018-05-31] MEDS: PANTOPRAZOLE SODIUM 40 MG/VIAL IV SCH (10:13)
[2018-05-31 12:00] VITALS: BP 108/69
[2018-05-31] MEDS: SODIUM CHLORIDE 0.9% INJ 3ML FLUSH IVF SCH ×2 (15:02→15:03)
[2018-05-31 16:00] VITALS: BP_SYST 108; BP_DIAS 71; BP_DIAS 72
[2018-05-31 21:58] VITALS: BP 120/62
== END 2018-05-31 22:05 | DRG 870 ==
LOC: ER 13:03 → CVICU 16:36 → EDBEDREQ 16:46 → ENRESERV 21:55 → 6EST 05-26 23:50
PROVIDERS: ADMIT Internal Medicine; ATTEND Internal Medicine
PROC: 5A1955Z Respiratory Ventilation, Greater than 96 Consecutive Hours (ICD-10-PCS; principal; 2018-05-18)
PROC: 0BH18EZ Insertion of Endotracheal Airway into Trachea, Via Natural or Artificial Opening Endoscopic (ICD-10-PCS; 2018-05-18)
PROC: 05HY33Z Insertion of Infusion Device into Upper Vein, Percutaneous Approach (ICD-10-PCS; 2018-05-18)
PROC: B54MZZA Ultrasonography of Right Upper Extremity Veins, Guidance (ICD-10-PCS; 2018-05-18)
DX: A41.50 Gram-negative sepsis, unspecified (principal); L89.154 Pressure ulcer of sacral region, stage 4; I50.33 Acute on chronic diastolic (congestive) heart failure; R65.21 Severe sepsis with septic shock; J96.01 Acute respiratory failure with hypoxia; N17.0 Acute kidney failure with tubular necrosis; E43 Unspecified severe protein-calorie malnutrition; G92 Toxic encephalopathy; J69.0 Pneumonitis due to inhalation of food and vomit; J15.211 Pneumonia due to Methicillin susceptible Staphylococcus aureus; N39.0 Urinary tract infection, site not specified; M62.82 Rhabdomyolysis; E87.2 Acidosis; I11.0 Hypertensive heart disease with heart failure; I48.91 Unspecified atrial fibrillation; F19.90 Other psychoactive substance use, unspecified, uncomplicated; R31.9 Hematuria, unspecified; D64.9 Anemia, unspecified; E86.0 Dehydration; B96.4 Proteus (mirabilis) (morganii) as the cause of diseases classified elsewhere; K21.9 Gastro-esophageal reflux disease without esophagitis; E11.9 Type 2 diabetes mellitus without complications; E78.5 Hyperlipidemia, unspecified; E83.39 Other disorders of phosphorus metabolism; E87.6 Hypokalemia; F03.90 Unspecified dementia, unspecified severity, without behavioral disturbance, psychotic disturbance, mood disturbance, and anxiety; I25.10 Atherosclerotic heart disease of native coronary artery without angina pectoris; I27.20 Pulmonary hypertension, unspecified; Z79.82 Long term (current) use of aspirin; Z86.73 Personal history of transient ischemic attack (TIA), and cerebral infarction without residual deficits; Z88.6 Allergy status to analgesic agent; Z91.012 Allergy to eggs; Z93.1 Gastrostomy status; Z68.21 Body mass index [BMI] 21.0-21.9, adult; Z88.8 Allergy status to other drugs, medicaments and biological substances; Z91.011 Allergy to milk products; Z79.899 Other long term (current) drug therapy
CPT/HCPCS: 31500; 36415; 36569; 36600; 70551; 71045; 76770; 76937; 80048; 80061; 80202; 82140; 82375; 82550; 82553; 82805; 82962; 83605; 83735; 83880; 84100; 84134; 84145; 84439; 84443; 84478; 84484; 87070; 87077; 87106; 87186; 87493; 87804; 93005; 93306; 93970; 94003; 94640; 96365; 96366; 96368; 99291; C1725; C9113; J0330; J0690; J2543; J2704; J3370; J3475; J3490; J7030; J7040; J7060; J7620

== ENCOUNTER 2018-06-15 12:09 | Inpatient (IN) | payer MEDICARE, MEDICAID ==
[~2018-06-15] VITALS: Ht 157.5 cm; Wt 65.8 kg
[2018-06-15] MEDS ORDERED: VANCOMYCIN 1 G PREMIX 200 ML IV ONE (12:45)
[2018-06-15] MEDS ORDERED: PIPERACILLIN/TAZ 3.375G PREMIX 50 ML IV ONE (12:45)
[2018-06-15] MEDS ORDERED: SODIUM CHLORIDE 0.9% 1000ML BAG (SEPSIS BOLUS) IV ONE (12:45)
[2018-06-15 14:00] LABS: HEMATOCRIT. 30.8 % (36.0-48.0); HEMOGLOBIN. 9.9 g/dL (12.0-16.0); MEAN CORPUSCULAR HEMOGLOBIN 27.9 pg (28.0-32.0); MEAN CORPUSCULAR VOLUME 87.2 fL (81.0-99.0); MEAN PLATELET VOLUME 7.5 fl (7.4-10.4); PLATELET 333 x1000/uL (130-400); RED BLOOD CELL COUNT 3.53 mill/uL (4.2-5.4); RED CELL DISTRIBUTION WIDTH 16.7 % (11.6-14.6)
[2018-06-15 14:03] LABS: CHLORIDE 108 mEq/L (98-107)
[2018-06-15 14:07] LABS: ETHANOL BLOOD < 10 mg/dL
[2018-06-15 14:18] LABS: PLATELET ESTIMATE NORMAL
[2018-06-15] MEDS ORDERED: ASPIRIN 325MG EC TABLET PO NR (14:30)
[2018-06-15 15:12] LABS: BG BASE EXCESS 1.8 mmol/L (-2.0-2.0); BG CARBOXYHEMOGLOBIN 0.9 % (0.5-1.5); BG DEOXYHEMOGLOBIN 5.5 % (0.0-5.0); BG FRACTION INSPIRED OXYGEN 21; BG HCO3 ACT 24.4 mmol/L (22.0-26.0); BG METHEMOGLOBIN 0.3 % (0.0-1.5); BG OXYGEN SATURATION 94.4 % (92.0-98.5); BG OXYHEMOGLOBIN 93.3 % (94.0-97.0); BG PH 7.513 (7.350-7.450); BG PO2 70.4 mmHg (75.0-100.0); BG SAMPLE SITE RIGHT RADIAL; BG TOTAL HEMOGLOBIN 10.4 g/dL (12.0-18.0); BG VENT MODE ROOM AIR
[2018-06-15] MEDS ORDERED: LORAZEPAM 2MG/ML CPJ IV PRN (18:30)
[2018-06-15] MEDS ORDERED: DOCUSATE SODIUM 100MG CAPSULE PO PRN (18:30)
[2018-06-15] MEDS ORDERED: ONDANSETRON HCL 4MG/2ML INJ IV PRN (18:30)
[2018-06-15] MEDS ORDERED: GUAIFENESIN 200MG/10ML SUGAR FREE UDC PO PRN (18:30)
[2018-06-15] MEDS ORDERED: CLONIDINE 0.1MG TABLET PO PRN (18:30)
[2018-06-15] MEDS ORDERED: HYDROMORPHONE HCL/PF 2MG/ML CPJ IV PRN (18:30)
[2018-06-15 23:00] VITALS: BP 93/56
[2018-06-15] MEDS: PIPERACILLIN/TAZ 3.375G PREMIX 50 ML IV SCH (23:00)
[2018-06-15] MEDS: DEXT 5%/0.45% NACL KCL 10MEQ/L 1,000 ML IV SCH (23:30)
[2018-06-16] VITALS (11 sets, daily range): BP systolic 89–104; BP diastolic 62–72
[2018-06-16] MEDS ORDERED: DEXTROSE 50% WATER 50ML SYRINGE IV PRN (00:45)
[2018-06-16] MEDS ORDERED: VANCOMYCIN 1 G PREMIX 200 ML IV SCH (01:00)
[2018-06-16] MEDS: PIPERACILLIN/TAZ 3.375G PREMIX 50 ML IV SCH ×3 (05:25→21:43)
[2018-06-16] MEDS ORDERED: BLOOD SUGAR DIAGNOSTIC STRIP TEST SCH (06:00)
[2018-06-16] MEDS ORDERED: INSULIN LISPRO 100 UNITS/ML SUBCUT SCH (06:00)
[2018-06-16 06:47] LABS: HEMATOCRIT. 29.1 % (36.0-48.0); HEMOGLOBIN. 9.1 g/dL (12.0-16.0); MEAN CORPUSCULAR VOLUME 86.6 fL (81.0-99.0); MEAN PLATELET VOLUME 8.1 fl (7.4-10.4); PLATELET 345 x1000/uL (130-400); RED BLOOD CELL COUNT 3.36 mill/uL (4.2-5.4); RED CELL DISTRIBUTION WIDTH 16.4 % (11.6-14.6)
[2018-06-16 08:00] LABS: PLATELET ESTIMATE NORMAL
[2018-06-16 08:12] LABS: BG BASE EXCESS -0.5 mmol/L (-2.0-2.0); BG CARBOXYHEMOGLOBIN 0.3 % (0.5-1.5); BG DEOXYHEMOGLOBIN 2.5 % (0.0-5.0); BG FRACTION INSPIRED OXYGEN 28; BG METHEMOGLOBIN 0.3 % (0.0-1.5); BG OXYGEN SATURATION 97.5 % (92.0-98.5); BG OXYHEMOGLOBIN 96.9 % (94.0-97.0); BG PCO2 28.7 mmHg (35.0-45.0); BG PH 7.502 (7.350-7.450); BG PO2 98.5 mmHg (75.0-100.0); BG SAMPLE SITE RIGHT RADIAL; BG TOTAL HEMOGLOBIN 10.2 g/dL (12.0-18.0); BG VENT MODE NASAL CANNULA
[2018-06-16 08:27] LABS: CHLORIDE 107 mEq/L (98-107)
[2018-06-16] MEDS: ENOXAPARIN 40MG/0.4ML SYR SUBCUT SCH (09:16)
[2018-06-16] MEDS ORDERED: CHOL200059 GT (10:07)
[2018-06-16] MEDS ORDERED: PROT40 GT (10:07)
[2018-06-16] MEDS ORDERED: AMIN30LI2 GT (10:07)
[2018-06-16] MEDS ORDERED: POTASSIUM CHLORIDE 20MEQ/PACKET GT NR (10:30)
[2018-06-16] MEDS: CHOLECALCIFEROL (D3) 1000 UNIT TABLET GT SCH (10:46)
[2018-06-16] MEDS: SERTRALINE HCL 25MG TABLET GT SCH (10:47)
[2018-06-16] MEDS: PANTOPRAZOLE SODIUM 40 MG/VIAL IV SCH (10:47)
[2018-06-16] MEDS: VANCOMYCIN 750 MG PREMIX 150 ML IV SCH (14:37)
[2018-06-16 17:50] LABS: CLARITY URINE TURBID (CLEAR); COLOR URINE DARK YELLOW (YELLOW); KETONES URINE NEGATIVE (NEGATIVE); LEUKOCYTE ESTERASE URINE 2+ (NEGATIVE); NITRITE URINE NEGATIVE (NEGATIVE); OCCULT BLOOD URINE 3+ (NEGATIVE); PH URINE 5.5 (4.5-8.0); PROTEIN URINE 2+ (NEGATIVE); SPECIFIC GRAVITY URINE 1.041 (1.005-1.030); UROBILINOGEN URINE 0.2 E.U./dL (0.2-1.0)
[2018-06-16 18:01] LABS: *BENZODIAZEPINES SCREEN URINE NEGATIVE (NEGATIVE); *COCAINE SCREEN URINE NEGATIVE (NEGATIVE); METHADONE URINE SCREEN NEGATIVE (NEGATIVE); OPIATES URINE SCREEN NEGATIVE (NEGATIVE); PHENCYCLIDINE URINE SCREEN NEGATIVE (NEGATIVE)
[2018-06-16 18:02] LABS: *AMPHETAMINES SCREEN URINE NEGATIVE (NEGATIVE); *BARBITURATES SCREEN URINE NEGATIVE (NEGATIVE); CANNABINOID URINE SCREEN NEGATIVE (NEGATIVE)
[2018-06-16] MEDS: DEXT 5%/0.45% NACL KCL 10MEQ/L 1,000 ML IV SCH (19:00)
[2018-06-16] MEDS ORDERED: IOHEXOL-300 100 ML BOTTLE ONE (19:25)
[2018-06-17] VITALS (15 sets, daily range): BP systolic 91–128; BP diastolic 59–80
[2018-06-17] MEDS: VANCOMYCIN 750 MG PREMIX 150 ML IV SCH ×2 (02:06→14:46)
[2018-06-17] MEDS: DEXT 5%/0.45% NACL KCL 10MEQ/L 1,000 ML IV SCH (04:01)
[2018-06-17] MEDS: PIPERACILLIN/TAZ 3.375G PREMIX 50 ML IV SCH ×3 (05:13→22:17)
[2018-06-17 06:58] LABS: CHLORIDE 105 mEq/L (98-107)
[2018-06-17 07:21] LABS: HEMATOCRIT. 26.2 % (36.0-48.0); HEMOGLOBIN. 8.5 g/dL (12.0-16.0); MEAN CORPUSCULAR HEMOGLOBIN 27.9 pg (28.0-32.0); MEAN CORPUSCULAR VOLUME 86.3 fL (81.0-99.0); MEAN PLATELET VOLUME 8.5 fl (7.4-10.4); PLATELET 280 x1000/uL (130-400); RED BLOOD CELL COUNT 3.03 mill/uL (4.2-5.4); RED CELL DISTRIBUTION WIDTH 16.7 % (11.6-14.6)
[2018-06-17] MEDS: SERTRALINE HCL 25MG TABLET GT SCH (08:23)
[2018-06-17] MEDS: CHOLECALCIFEROL (D3) 1000 UNIT TABLET GT SCH (08:23)
[2018-06-17] MEDS: PANTOPRAZOLE SODIUM 40 MG/VIAL IV SCH (09:26)
[2018-06-17] MEDS: ENOXAPARIN 40MG/0.4ML SYR SUBCUT SCH (09:28)
[2018-06-17 10:46] LABS: PLATELET ESTIMATE NORMAL
[2018-06-17] MEDS: FLUCONAZOLE 200 MG/100ML BAG 100 MG in CONTAINER,EMPTY 0 BAG IV SCH (14:47)
[2018-06-18] VITALS (20 sets, daily range): BP systolic 102–152; BP diastolic 68–92
[2018-06-18] MEDS: VANCOMYCIN 750 MG PREMIX 150 ML IV SCH ×2 (02:24→14:26)
[2018-06-18] MEDS: PIPERACILLIN/TAZ 3.375G PREMIX 50 ML IV SCH ×3 (05:13→21:48)
[2018-06-18 06:47] LABS: BASOPHILS % 0.5 % (0.0-2.0); EOSINOPHILS % 1.6 % (0.0-5.0); HEMATOCRIT. 25.8 % (36.0-48.0); HEMOGLOBIN. 8.3 g/dL (12.0-16.0); LYMPHOCYTES % 7.8 % (20.0-50.0); MEAN CORPUSCULAR HEMOGLOBIN 27.5 pg (28.0-32.0); MEAN CORPUSCULAR VOLUME 85.3 fL (81.0-99.0); MEAN PLATELET VOLUME 7.9 fl (7.4-10.4); MONOCYTES % 5.5 % (2.0-8.0); NEUTROPHILS % 84.6 % (40.0-76.0); PLATELET 331 x1000/uL (130-400); RED BLOOD CELL COUNT 3.03 mill/uL (4.2-5.4); RED CELL DISTRIBUTION WIDTH 16.9 % (11.6-14.6)
[2018-06-18 07:01] LABS: CHLORIDE 105 mEq/L (98-107)
[2018-06-18] MEDS: PANTOPRAZOLE SODIUM 40 MG/VIAL IV SCH (08:19)
[2018-06-18] MEDS: ENOXAPARIN 40MG/0.4ML SYR SUBCUT SCH (08:19)
[2018-06-18] MEDS: CHOLECALCIFEROL (D3) 1000 UNIT TABLET GT SCH (08:20)
[2018-06-18] MEDS: SERTRALINE HCL 25MG TABLET GT SCH (08:20)
[2018-06-18] MEDS ORDERED: FENTANYL CITRATE/PF 50MCG/ML 2ML VIAL IV ONE (10:10)
[2018-06-18] MEDS ORDERED: DIATR MEGLU/DIATRIZOATE SOLN 30ML ONE (10:13)
[2018-06-18] MEDS ORDERED: LIDOCAINE HCL 1% 20ML VIAL (Pyxis) INJ ONE (10:13)
[2018-06-18] MEDS ORDERED: FENTANYL CITRATE/PF 50MCG/ML 2ML VIAL ONE (10:20)
[2018-06-18] MEDS: FLUCONAZOLE 200 MG/100ML BAG 100 MG in CONTAINER,EMPTY 0 BAG IV SCH (16:44)
[2018-06-19] VITALS (14 sets, daily range): BP systolic 108–127; BP diastolic 33–80
[2018-06-19] MEDS: DEXT 5%/0.45% NACL KCL 10MEQ/L 1,000 ML IV SCH ×2 (00:11→07:00)
[2018-06-19] MEDS: VANCOMYCIN 750 MG PREMIX 150 ML IV SCH ×2 (02:45→16:09)
[2018-06-19] MEDS: PIPERACILLIN/TAZ 3.375G PREMIX 50 ML IV SCH ×3 (06:30→21:28)
[2018-06-19] MEDS: SERTRALINE HCL 25MG TABLET GT SCH (09:13)
[2018-06-19] MEDS: CHOLECALCIFEROL (D3) 1000 UNIT TABLET GT SCH (09:13)
[2018-06-19] MEDS: FAMOTIDINE 20MG/2ML VIAL IV SCH (09:16)
[2018-06-19] MEDS: ENOXAPARIN 40MG/0.4ML SYR SUBCUT SCH (09:16)
[2018-06-19 09:58] LABS: BASOPHILS % 0.3 % (0.0-2.0); EOSINOPHILS % 1.3 % (0.0-5.0); HEMATOCRIT. 28.4 % (36.0-48.0); HEMOGLOBIN. 8.8 g/dL (12.0-16.0); LYMPHOCYTES % 10.6 % (20.0-50.0); MEAN CORPUSCULAR HEMOGLOBIN 26.6 pg (28.0-32.0); MEAN CORPUSCULAR VOLUME 85.4 fL (81.0-99.0); MEAN PLATELET VOLUME 7.6 fl (7.4-10.4); MONOCYTES % 7.2 % (2.0-8.0); NEUTROPHILS % 80.6 % (40.0-76.0); PLATELET 345 x1000/uL (130-400); RED BLOOD CELL COUNT 3.32 mill/uL (4.2-5.4); RED CELL DISTRIBUTION WIDTH 16.5 % (11.6-14.6)
[2018-06-19 10:08] LABS: CHLORIDE 105 mEq/L (98-107)
[2018-06-19] MEDS: FLUCONAZOLE 200 MG/100ML BAG 100 MG in CONTAINER,EMPTY 0 BAG IV SCH (18:28)
[2018-06-20] VITALS (13 sets, daily range): BP systolic 109–129; BP diastolic 56–88
[2018-06-20] MEDS: DEXT 5%/0.45% NACL KCL 10MEQ/L 1,000 ML IV SCH ×2 (02:23→22:43)
[2018-06-20] MEDS: VANCOMYCIN 750 MG PREMIX 150 ML IV SCH ×2 (02:23→12:19)
[2018-06-20] MEDS: PIPERACILLIN/TAZ 3.375G PREMIX 50 ML IV SCH ×3 (05:08→22:43)
[2018-06-20] MEDS: FAMOTIDINE 20MG/2ML VIAL IV SCH (08:55)
[2018-06-20] MEDS: CHOLECALCIFEROL (D3) 1000 UNIT TABLET GT SCH (08:55)
[2018-06-20] MEDS: SERTRALINE HCL 25MG TABLET GT SCH (08:55)
[2018-06-20] MEDS: ENOXAPARIN 40MG/0.4ML SYR SUBCUT SCH (09:25)
[2018-06-20] MEDS: FLUCONAZOLE 200 MG/100ML BAG 100 MG in CONTAINER,EMPTY 0 BAG IV SCH (21:17)
[2018-06-21] VITALS (10 sets, daily range): BP systolic 117–138; BP diastolic 74–88
[2018-06-21] MEDS: VANCOMYCIN 750 MG PREMIX 150 ML IV SCH ×2 (02:20→14:31)
[2018-06-21] MEDS: PIPERACILLIN/TAZ 3.375G PREMIX 50 ML IV SCH ×2 (05:24→14:31)
[2018-06-21] MEDS: SERTRALINE HCL 25MG TABLET GT SCH (09:38)
[2018-06-21] MEDS: FAMOTIDINE 20MG/2ML VIAL IV SCH (09:39)
[2018-06-21] MEDS: CHOLECALCIFEROL (D3) 1000 UNIT TABLET GT SCH (09:39)
[2018-06-21] MEDS: ENOXAPARIN 40MG/0.4ML SYR SUBCUT SCH (09:39)
[2018-06-21] MEDS: FLUCONAZOLE 200 MG/100ML BAG 100 MG in CONTAINER,EMPTY 0 BAG IV SCH (14:37)
[2018-06-22] MEDS ORDERED: FLUCONAZOLE 100MG TABLET PO SCH (09:00)
== END 2018-06-21 18:36 | DRG 871 ==
LOC: ER 12:30 → 5EST 14:49 → EDBEDREQ 14:55 → EDBEDREQSVC 17:06 → SUPCPDRO 18:14 → ENRESERV 20:17
PROVIDERS: ADMIT Hospitalist; ATTEND Hospitalist
PROC: 0D20XUZ Change Feeding Device in Upper Intestinal Tract, External Approach (ICD-10-PCS; principal; 2018-06-18)
PROC: 0W9F30Z Drainage of Abdominal Wall with Drainage Device, Percutaneous Approach (ICD-10-PCS; 2018-06-18)
DX: A41.9 Sepsis, unspecified organism (principal); L89.154 Pressure ulcer of sacral region, stage 4; E43 Unspecified severe protein-calorie malnutrition; I21.4 Non-ST elevation (NSTEMI) myocardial infarction; I50.33 Acute on chronic diastolic (congestive) heart failure; J96.00 Acute respiratory failure, unspecified whether with hypoxia or hypercapnia; R65.21 Severe sepsis with septic shock; E87.2 Acidosis; B37.49 Other urogenital candidiasis; G93.40 Encephalopathy, unspecified; K94.23 Gastrostomy malfunction; L02.211 Cutaneous abscess of abdominal wall; T85.628A Displacement of other specified internal prosthetic devices, implants and grafts, initial encounter; L03.311 Cellulitis of abdominal wall; E78.5 Hyperlipidemia, unspecified; D64.9 Anemia, unspecified; E11.9 Type 2 diabetes mellitus without complications; E87.6 Hypokalemia; I48.91 Unspecified atrial fibrillation; F32.9 Major depressive disorder, single episode, unspecified; I27.20 Pulmonary hypertension, unspecified; B96.4 Proteus (mirabilis) (morganii) as the cause of diseases classified elsewhere; Y83.8 Other surgical procedures as the cause of abnormal reaction of the patient, or of later complication, without mention of misadventure at the time of the procedure; F03.90 Unspecified dementia, unspecified severity, without behavioral disturbance, psychotic disturbance, mood disturbance, and anxiety; I11.0 Hypertensive heart disease with heart failure; I25.10 Atherosclerotic heart disease of native coronary artery without angina pectoris; K21.9 Gastro-esophageal reflux disease without esophagitis; Z91.012 Allergy to eggs; Z86.73 Personal history of transient ischemic attack (TIA), and cerebral infarction without residual deficits; Z88.8 Allergy status to other drugs, medicaments and biological substances; Z88.6 Allergy status to analgesic agent; Z91.011 Allergy to milk products; Z79.82 Long term (current) use of aspirin; Z79.899 Other long term (current) drug therapy; Z87.440 Personal history of urinary (tract) infections; Z68.26 Body mass index [BMI] 26.0-26.9, adult; Y92.89 Other specified places as the place of occurrence of the external cause
CPT/HCPCS: 36415; 36600; 49450; 71045; 74176; 77002; 80202; 80305; 80320; 82375; 82805; 82962; 83605; 83735; 83880; 84134; 84145; 84484; 87106; 93005; 93970; 93971; 96365; 96366; 96368; 96375; 99291; A6261; C1769; C9113; J1170; J1450; J1650; J2543; J3010; J3370; J3490; J7030; J7040; J7050; Q9963; Q9967; A4315; G0480

== ENCOUNTER 2019-06-04 12:28 | Emergency (ER) | payer MEDICARE, MEDICAID ==
[~2019-06-04] VITALS: Ht 165.1 cm; Wt 53.0 kg
[~2019-06-04 12:28] MED LIST changes: +AMIN30LI2 GT; -ASPI-1159 PO; +ASPI-1497 PO; -BENA20TA10 PO; +CHOL200059 GT; -FURO-152 PO; -IBUP-2028 PO; -MULT-1146 PO; -NITR0.4T49 SL; +PROT40 GT
[2019-06-04] MEDS ORDERED: SODIUM CHLORIDE 0.9% 1,000 ML IV ONE (13:10)
[2019-06-04] MEDS ORDERED: DIATR MEGLU/DIATRIZOATE SOLN 30ML ONE (13:53)
[2019-06-04 15:21] LABS: BASOPHILS % 0.8 % (0.0-2.0); EOSINOPHILS % 1.7 % (0.0-5.0); HEMATOCRIT. 44.2 % (36.0-48.0); HEMOGLOBIN. 14.8 g/dL (12.0-16.0); LYMPHOCYTES % 23.1 % (20.0-50.0); MEAN CORPUSCULAR HEMOGLOBIN 30.2 pg (28.0-32.0); MEAN CORPUSCULAR VOLUME 90.2 fL (81.0-99.0); MEAN PLATELET VOLUME 9.1 fl (7.4-10.4); MONOCYTES % 4.7 % (2.0-8.0); NEUTROPHILS % 69.7 % (40.0-76.0); PLATELET 226 x1000/uL (130-400); RED BLOOD CELL COUNT 4.91 mill/uL (4.2-5.4); RED CELL DISTRIBUTION WIDTH 14.9 % (11.6-14.6)
[2019-06-04 15:29] LABS: CHLORIDE 106 mEq/L (98-107)
[2019-06-04 22:42] VITALS: BP 136/92
== END 2019-06-04 22:44 ==
LOC: ER 12:36
DX: Z43.1 Encounter for attention to gastrostomy (principal); I25.10 Atherosclerotic heart disease of native coronary artery without angina pectoris; E78.00 Pure hypercholesterolemia, unspecified; I10 Essential (primary) hypertension; E11.9 Type 2 diabetes mellitus without complications; Z91.011 Allergy to milk products; Z91.012 Allergy to eggs; Z91.018 Allergy to other foods; Z88.6 Allergy status to analgesic agent; Z88.8 Allergy status to other drugs, medicaments and biological substances
CPT/HCPCS: 36415; 51701; 71045; 74018; 80053; 85025; 93005; 96360; 96361; 99285; J7030; Q9963

== ENCOUNTER 2019-07-08 11:09 | Inpatient (IN) | payer MEDICARE, MEDICAID ==
[~2019-07-08] VITALS: Ht 165.1 cm; Wt 59.9 kg
[2019-07-08] MEDS ORDERED: VANCOMYCIN 1 G PREMIX 200 ML IV ONE (11:30)
[2019-07-08] MEDS ORDERED: SODIUM CHLORIDE 0.9% 1000ML BAG (SEPSIS BOLUS) IV ONE (11:30)
[2019-07-08] MEDS ORDERED: PIPERACILLIN/TAZ 3.375G PREMIX 50 ML IV ONE (11:30)
[2019-07-08] MEDS ORDERED: MIDAZOLAM HCL 50 MG in DEXTROSE 5% WATER 40 ML IV ONE ×2 (11:45→22:15)
[2019-07-08] MEDS ORDERED: SUCCINYLCHOLINE CHLORIDE 200MG/10ML IV ONE (11:54)
[2019-07-08] MEDS ORDERED: ETOMIDATE 2MG/ML 10ML VIAL IV ONE (11:55)
[2019-07-08 12:20] LABS: HEMATOCRIT. 43.1 % (36.0-48.0); HEMOGLOBIN. 14.3 g/dL (12.0-16.0); MEAN CORPUSCULAR HEMOGLOBIN 29.7 pg (28.0-32.0); MEAN CORPUSCULAR VOLUME 89.1 fL (81.0-99.0); MEAN PLATELET VOLUME 9.8 fl (7.4-10.4); PLATELET 195 x1000/uL (130-400); RED BLOOD CELL COUNT 4.83 mill/uL (4.2-5.4); RED CELL DISTRIBUTION WIDTH 14.1 % (11.6-14.6)
[2019-07-08 12:28] LABS: CHLORIDE 108 mEq/L (98-107)
[2019-07-08 12:44] LABS: ATYPICAL LYMPHOCYTES 1; PLATELET ESTIMATE NORMAL
[2019-07-08] MEDS ORDERED: IPRATROPIUM/ALBUTEROL 0.5-3(2.5)MG/3ML NEB HHN PRN (13:45)
[2019-07-08] MEDS ORDERED: ONDANSETRON HCL 4MG/2ML INJ IV PRN (13:45)
[2019-07-08] MEDS ORDERED: CLONIDINE 0.1MG TABLET PO PRN (13:45)
[2019-07-08 14:03] LABS: PHOSPHORUS 2.3 mg/dL (2.5-4.9)
[2019-07-08] MEDS ORDERED: LORAZEPAM 2MG/ML CPJ IV PRN (18:15)
[2019-07-08] MEDS ORDERED: NOREPINEPHRINE 32 MG in DEXT 5% WATER 468 ML IV PRN (18:15)
[2019-07-08] MEDS ORDERED: FENTANYL CITRATE/PF 500 MCG in SODIUM CHLORIDE 0.9% 40 ML IV PRN (18:15)
[2019-07-08 18:17] LABS: BG CARBOXYHEMOGLOBIN 0.3 % (0.5-1.5); BG DEOXYHEMOGLOBIN 1.6 % (0.0-5.0); BG HCO3 ACT 22.7 mmol/L (22.0-26.0); BG METHEMOGLOBIN 0.3 % (0.0-1.5); BG OXYGEN SATURATION 98.4 % (92.0-98.5); BG OXYHEMOGLOBIN 97.8 % (94.0-97.0); BG PCO2 27.7 mmHg (35.0-45.0); BG PH 7.532 (7.350-7.450); BG PO2 113.5 mmHg (75.0-100.0); BG SAMPLE SITE RIGHT BRACHIAL; BG TIDAL VOLUME(mL) 450 mL; BG TOTAL HEMOGLOBIN 12.1 g/dL (12.0-18.0); BG VENT MODE VENT - A/C; BG VENT RATE 16 set
[2019-07-08 21:16] LABS: CLARITY URINE TURBID (CLEAR); COLOR URINE DK YELLOW (YELLOW); KETONES URINE TRACE (NEGATIVE); LEUKOCYTE ESTERASE URINE 1+ (NEGATIVE); NITRITE URINE NEGATIVE (NEGATIVE); OCCULT BLOOD URINE NEGATIVE (NEGATIVE); PROTEIN URINE 2+ (NEGATIVE); SPECIFIC GRAVITY URINE 1.031 (1.005-1.030)
[2019-07-08] MEDS ORDERED: PIPERACILLIN/TAZ 3.375G PREMIX 50 ML IV SCH (22:00)
[2019-07-08] MEDS ORDERED: PROPOFOL 10MG/ML 100ML 100 ML IV SCH (22:00)
[2019-07-08] MEDS ORDERED: MIDAZOLAM HCL 50 MG in DEXTROSE 5% WATER 40 ML IV NR (22:30)
[2019-07-08] MEDS ORDERED: DEXTROSE 50% WATER 50ML SYRINGE IV PRN (23:15)
[2019-07-08 23:31] VITALS: BP 46/23
[2019-07-08 23:37] VITALS: BP 99/74
[2019-07-08 23:39] LABS: D-DIMER 9.8 mg/L FEU (<0.50); INR 1.1; PARTIAL THROMBOPLASTIN TIME 22.5 sec (23.4-31.0); PROTHROMBIN TIME 11.9 sec (9.6-11.0)
[2019-07-08 23:45] VITALS: BP 88/56
[2019-07-08 23:51] VITALS: BP 83/57
[2019-07-09] VITALS (87 sets, daily range): BP systolic 46–138; BP diastolic 23–91
[2019-07-09] MEDS ORDERED: NOREPINEPHRINE 32 MG in DEXT 5% WATER 468 ML IV PRN (01:00)
[2019-07-09] MEDS: FENTANYL CITRATE/PF 500 MCG in SODIUM CHLORIDE 0.9% 40 ML IV PRN ×2 (02:00→08:57)
[2019-07-09] MEDS ORDERED: POTASSIUM CHLORIDE INJ 40 MEQ in DEXT 5% WATER 250 ML IV NR (02:00)
[2019-07-09] MEDS ORDERED: VANCOMYCIN 750 MG in DEXT 5% WATER 250 ML IV SCH (05:00)
[2019-07-09 05:36] LABS: BASOPHILS % 0.1 % (0.0-2.0); EOSINOPHILS % 0.1 % (0.0-5.0); HEMATOCRIT. 35.4 % (36.0-48.0); HEMOGLOBIN. 11.7 g/dL (12.0-16.0); LYMPHOCYTES % 7.1 % (20.0-50.0); MEAN CORPUSCULAR HEMOGLOBIN 29.5 pg (28.0-32.0); MEAN PLATELET VOLUME 10.3 fl (7.4-10.4); MONOCYTES % 4.6 % (2.0-8.0); NEUTROPHILS % 88.1 % (40.0-76.0); PLATELET 197 x1000/uL (130-400); RED BLOOD CELL COUNT 3.97 mill/uL (4.2-5.4); RED CELL DISTRIBUTION WIDTH 14.1 % (11.6-14.6)
[2019-07-09 05:47] LABS: CHLORIDE 113 mEq/L (98-107)
[2019-07-09 05:58] LABS: LDL CHOLESTEROL 36 mg/dL (5-100)
[2019-07-09 06:00] LABS: HDL CHOLESTEROL 37 mg/dL (40-59)
[2019-07-09] MEDS: BLOOD SUGAR DIAGNOSTIC STRIP TEST SCH ×4 (06:00→17:58)
[2019-07-09] MEDS: INSULIN LISPRO 100 UNITS/ML SUBCUT SCH ×4 (06:00→17:58)
[2019-07-09] MEDS ORDERED: PIPERACILLIN/TAZ 3.375G PREMIX 50 ML IV SCH (07:00)
[2019-07-09] MEDS: PIPERACILLIN/TAZOBACTAM 3.375 G in DEXT 5% WATER 100 ML IV SCH ×2 (08:46→17:03)
[2019-07-09] MEDS ORDERED: KETOROLAC 15MG/ML VIAL IV PRN (10:00)
[2019-07-09] MEDS: PANTOPRAZOLE SODIUM 40 MG/VIAL IV SCH (10:09)
[2019-07-09 10:11] LABS: BG BASE EXCESS -2.8 mmol/L (-2.0-2.0); BG CARBOXYHEMOGLOBIN 0.3 % (0.5-1.5); BG DEOXYHEMOGLOBIN 1.1 % (0.0-5.0); BG FRACTION INSPIRED OXYGEN 80; BG OXYGEN SATURATION 98.9 % (92.0-98.5); BG OXYHEMOGLOBIN 98.6 % (94.0-97.0); BG PCO2 28.6 mmHg (35.0-45.0); BG PH 7.463 (7.350-7.450); BG PO2 174.3 mmHg (75.0-100.0); BG SAMPLE SITE RIGHT BRACHIAL; BG TIDAL VOLUME(mL) 450 mL; BG VENT MODE VENT - A/C; BG VENT RATE 12 set
[2019-07-09] MEDS ORDERED: POTASSIUM CHLORIDE INJ 40 MEQ in DEXT 5% WATER 250 ML IV ONE (12:00)
[2019-07-09] MEDS: VANCOMYCIN HCL 750 MG in DEXT 5% WATER 250 ML IV SCH (17:58)
[2019-07-09] MEDS ORDERED: NOREPINEPHRINE 4MG/250ML PMX 250 ML IV ONE (23:45)
[2019-07-10] VITALS (97 sets, daily range): BP systolic 89–178; BP diastolic 60–117
[2019-07-10] MEDS: PIPERACILLIN/TAZOBACTAM 3.375 G in DEXT 5% WATER 100 ML IV SCH ×3 (00:21→15:45)
[2019-07-10] MEDS ORDERED: NOREPINEPHRINE 4MG in DEXT 5% WATER 250ML IV PRN (01:00)
[2019-07-10 05:44] LABS: CHLORIDE 111 mEq/L (98-107)
[2019-07-10 05:46] LABS: BASOPHILS % 0.4 % (0.0-2.0); EOSINOPHILS % 0.9 % (0.0-5.0); HEMATOCRIT. 35.7 % (36.0-48.0); HEMOGLOBIN. 11.7 g/dL (12.0-16.0); LYMPHOCYTES % 16.3 % (20.0-50.0); MEAN CORPUSCULAR HEMOGLOBIN 29.2 pg (28.0-32.0); MEAN CORPUSCULAR VOLUME 88.8 fL (81.0-99.0); MEAN PLATELET VOLUME 10.4 fl (7.4-10.4); MONOCYTES % 4.6 % (2.0-8.0); NEUTROPHILS % 77.8 % (40.0-76.0); PLATELET 165 x1000/uL (130-400); RED BLOOD CELL COUNT 4.01 mill/uL (4.2-5.4)
[2019-07-10 05:52] LABS: VANCOMYCIN TROUGH 10.3 ug/mL (5.0-10.0)
[2019-07-10] MEDS: INSULIN LISPRO 100 UNITS/ML SUBCUT SCH ×4 (06:00→17:53)
[2019-07-10] MEDS: BLOOD SUGAR DIAGNOSTIC STRIP TEST SCH ×4 (06:15→17:53)
[2019-07-10] MEDS: VANCOMYCIN HCL 750 MG in DEXT 5% WATER 250 ML IV SCH (06:19)
[2019-07-10] MEDS: FENTANYL CITRATE/PF 500 MCG in SODIUM CHLORIDE 0.9% 40 ML IV PRN (06:54)
[2019-07-10] MEDS: PANTOPRAZOLE SODIUM 40 MG/VIAL IV SCH (09:19)
[2019-07-10 09:45] LABS: BG BASE EXCESS -0.4 mmol/L (-2.0-2.0); BG CARBOXYHEMOGLOBIN 0.3 % (0.5-1.5); BG DEOXYHEMOGLOBIN 1.4 % (0.0-5.0); BG FRACTION INSPIRED OXYGEN 40; BG HCO3 ACT 22.6 mmol/L (22.0-26.0); BG METHEMOGLOBIN 0.3 % (0.0-1.5); BG OXYGEN SATURATION 98.6 % (92.0-98.5); BG PCO2 31.4 mmHg (35.0-45.0); BG PH 7.475 (7.350-7.450); BG PO2 135.7 mmHg (75.0-100.0); BG SAMPLE SITE RIGHT RADIAL; BG TIDAL VOLUME(mL) 450 mL; BG TOTAL HEMOGLOBIN 10.3 g/dL (12.0-18.0); BG VENT MODE VENT - A/C; BG VENT RATE 12 set
[2019-07-10] MEDS ORDERED: POTASSIUM CHLORIDE 20MEQ/PACKET PO NR (10:00)
[2019-07-10] MEDS ORDERED: LIDOCAINE HCL 1% 20ML VIAL (Pyxis) INJ ONE (11:03)
[2019-07-10] MEDS: SODIUM CHLORIDE 0.9% 1,000 ML IV SCH (11:45)
[2019-07-10 13:23] LABS: COVID-19 PCR RNA DETECTED
[2019-07-10] MEDS: VANCOMYCIN 1250MG in DEXTROSE 5% WATER 250ML IV SCH (17:52)
[2019-07-11] VITALS (93 sets, daily range): BP systolic 86–134; BP diastolic 57–87
[2019-07-11] MEDS: BLOOD SUGAR DIAGNOSTIC STRIP TEST SCH ×4 (00:31→18:49)
[2019-07-11] MEDS: PIPERACILLIN/TAZOBACTAM 3.375 G in DEXT 5% WATER 100 ML IV SCH ×3 (00:32→15:38)
[2019-07-11] MEDS: HYDROXYCHLOROQUINE SULFATE 200MG TABLET PO SCH ×2 (01:24→11:57)
[2019-07-11 05:36] LABS: BASOPHILS % 0.4 % (0.0-2.0); EOSINOPHILS % 1.6 % (0.0-5.0); HEMOGLOBIN. 8.9 g/dL (12.0-16.0); LYMPHOCYTES % 13.3 % (20.0-50.0); MEAN CORPUSCULAR HEMOGLOBIN 29.9 pg (28.0-32.0); MEAN CORPUSCULAR VOLUME 87.9 fL (81.0-99.0); MEAN PLATELET VOLUME 9.6 fl (7.4-10.4); MONOCYTES % 4.6 % (2.0-8.0); NEUTROPHILS % 80.1 % (40.0-76.0); PLATELET 160 x1000/uL (130-400); RED BLOOD CELL COUNT 2.96 mill/uL (4.2-5.4); RED CELL DISTRIBUTION WIDTH 14.1 % (11.6-14.6)
[2019-07-11] MEDS: INSULIN LISPRO 100 UNITS/ML SUBCUT SCH ×4 (05:43→18:00)
[2019-07-11] MEDS: VANCOMYCIN 1250MG in DEXTROSE 5% WATER 250ML IV SCH ×2 (05:44→18:13)
[2019-07-11 05:45] LABS: CHLORIDE 109 mEq/L (98-107)
[2019-07-11] MEDS: FENTANYL CITRATE/PF 500 MCG in SODIUM CHLORIDE 0.9% 40 ML IV PRN (05:51)
[2019-07-11 07:58] LABS: COVID-19 PCR RNA NOT DETECTED
[2019-07-11 08:18] LABS: BG BASE EXCESS -1.8 mmol/L (-2.0-2.0); BG CARBOXYHEMOGLOBIN 0.3 % (0.5-1.5); BG DEOXYHEMOGLOBIN 1.3 % (0.0-5.0); BG HCO3 ACT 21.6 mmol/L (22.0-26.0); BG METHEMOGLOBIN 0.2 % (0.0-1.5); BG OXYGEN SATURATION 98.7 % (92.0-98.5); BG OXYHEMOGLOBIN 98.2 % (94.0-97.0); BG PCO2 31.1 mmHg (35.0-45.0); BG PH 7.459 (7.350-7.450); BG PO2 133.5 mmHg (75.0-100.0); BG SAMPLE SITE RIGHT RADIAL; BG TIDAL VOLUME(mL) 450 mL; BG TOTAL HEMOGLOBIN 8.7 g/dL (12.0-18.0); BG VENT MODE VENT - A/C; BG VENT RATE 12 set
[2019-07-11] MEDS: PANTOPRAZOLE SODIUM 40 MG/VIAL IV SCH (08:36)
[2019-07-11 11:49] LABS: CREATINE KINASE 2147 IU/L (26-192)
[2019-07-11] MEDS: SODIUM CHLORIDE 0.9% 1,000 ML IV SCH (13:49)
[2019-07-12] VITALS (82 sets, daily range): BP systolic 90–142; BP diastolic 58–94
[2019-07-12] MEDS: PIPERACILLIN/TAZOBACTAM 3.375 G in DEXT 5% WATER 100 ML IV SCH ×3 (00:10→16:00)
[2019-07-12] MEDS: BLOOD SUGAR DIAGNOSTIC STRIP TEST SCH ×4 (00:43→18:06)
[2019-07-12] MEDS: FENTANYL CITRATE/PF 500 MCG in SODIUM CHLORIDE 0.9% 40 ML IV PRN ×2 (03:07→10:24)
[2019-07-12 05:31] LABS: BASOPHILS % 0.4 % (0.0-2.0); EOSINOPHILS % 0.9 % (0.0-5.0); HEMATOCRIT. 25.1 % (36.0-48.0); HEMOGLOBIN. 8.4 g/dL (12.0-16.0); LYMPHOCYTES % 7.4 % (20.0-50.0); MEAN CORPUSCULAR HEMOGLOBIN 29.5 pg (28.0-32.0); MEAN CORPUSCULAR VOLUME 88.5 fL (81.0-99.0); MEAN PLATELET VOLUME 9.6 fl (7.4-10.4); MONOCYTES % 5.4 % (2.0-8.0); NEUTROPHILS % 85.9 % (40.0-76.0); PLATELET 170 x1000/uL (130-400); RED BLOOD CELL COUNT 2.84 mill/uL (4.2-5.4); RED CELL DISTRIBUTION WIDTH 13.7 % (11.6-14.6)
[2019-07-12 05:40] LABS: CHLORIDE 107 mEq/L (98-107)
[2019-07-12 05:48] LABS: PHOSPHORUS 2.2 mg/dL (2.5-4.9)
[2019-07-12 05:53] LABS: VANCOMYCIN TROUGH 17.7 ug/mL (5.0-10.0)
[2019-07-12] MEDS: INSULIN LISPRO 100 UNITS/ML SUBCUT SCH ×4 (06:00→18:00)
[2019-07-12] MEDS: VANCOMYCIN 1250MG in DEXTROSE 5% WATER 250ML IV SCH ×2 (06:50→18:06)
[2019-07-12] MEDS: SODIUM CHLORIDE 0.9% 1,000 ML IV SCH ×2 (06:55→10:36)
[2019-07-12] MEDS: PANTOPRAZOLE SODIUM 40 MG/VIAL IV SCH (08:29)
[2019-07-12] MEDS: HYDROXYCHLOROQUINE SULFATE 200MG TABLET PO SCH ×2 (08:29→21:02)
[2019-07-12] MEDS ORDERED: POTASSIUM CHLORIDE 20MEQ/PACKET PO NR (08:45)
[2019-07-12] MEDS ORDERED: MAGNESIUM 2 G PREMIX 50 ML IV NR (09:30)
[2019-07-12 09:32] LABS: BG BASE EXCESS 1.3 mmol/L (-2.0-2.0); BG CARBOXYHEMOGLOBIN 0.1 % (0.5-1.5); BG DEOXYHEMOGLOBIN 1.4 % (0.0-5.0); BG FRACTION INSPIRED OXYGEN 40; BG HCO3 ACT 24.8 mmol/L (22.0-26.0); BG METHEMOGLOBIN 0.1 % (0.0-1.5); BG OXYGEN SATURATION 98.6 % (92.0-98.5); BG OXYHEMOGLOBIN 98.4 % (94.0-97.0); BG PCO2 34.5 mmHg (35.0-45.0); BG PH 7.474 (7.350-7.450); BG PO2 129.1 mmHg (75.0-100.0); BG SAMPLE SITE RIGHT RADIAL; BG TIDAL VOLUME(mL) 450 mL; BG TOTAL HEMOGLOBIN 8.5 g/dL (12.0-18.0); BG VENT MODE VENT - A/C; BG VENT RATE 12 set
[2019-07-12] MEDS ORDERED: POTASSIUM PHOS,M-BASIC-D-BASIC 20 MMOL in DEXT 5% WATER 243.3333 ML IV NR (10:00)
[2019-07-12] MEDS ORDERED: MORPHINE SULFATE 2 MG/ML CPJ (NOT FOR IM USE) IV PRN (15:30)
[2019-07-13] VITALS (24 sets, daily range): BP systolic 76–115; BP diastolic 47–73
[2019-07-13] MEDS: PIPERACILLIN/TAZOBACTAM 3.375 G in DEXT 5% WATER 100 ML IV SCH ×3 (00:59→15:52)
[2019-07-13] MEDS: INSULIN LISPRO 100 UNITS/ML SUBCUT SCH ×4 (06:00→17:55)
[2019-07-13] MEDS: BLOOD SUGAR DIAGNOSTIC STRIP TEST SCH ×4 (06:00→17:55)
[2019-07-13 06:36] LABS: BASOPHILS % 0.3 % (0.0-2.0); EOSINOPHILS % 1.3 % (0.0-5.0); HEMATOCRIT. 22.8 % (36.0-48.0); HEMOGLOBIN. 7.7 g/dL (12.0-16.0); MEAN CORPUSCULAR HEMOGLOBIN 29.7 pg (28.0-32.0); MEAN CORPUSCULAR VOLUME 87.9 fL (81.0-99.0); MONOCYTES % 5.1 % (2.0-8.0); NEUTROPHILS % 83.3 % (40.0-76.0); PLATELET 196 x1000/uL (130-400); RED BLOOD CELL COUNT 2.59 mill/uL (4.2-5.4)
[2019-07-13 06:47] LABS: CHLORIDE 108 mEq/L (98-107)
[2019-07-13] MEDS: SODIUM CHLORIDE 0.9% 1,000 ML IV SCH (06:52)
[2019-07-13 06:57] LABS: PHOSPHORUS 2.4 mg/dL (2.5-4.9)
[2019-07-13] MEDS ORDERED: POTASSIUM CHLORIDE 20MEQ/PACKET PO SCH (07:45)
[2019-07-13] MEDS: PANTOPRAZOLE SODIUM 40 MG/VIAL IV SCH (08:29)
[2019-07-13] MEDS: HYDROXYCHLOROQUINE SULFATE 200MG TABLET PO SCH ×2 (08:29→20:44)
[2019-07-13] MEDS ORDERED: POTASSIUM PHOS,M-BASIC-D-BASIC 20 MMOL in DEXT 5% WATER 243.3333 ML IV SCH (09:00)
[2019-07-13] MEDS ORDERED: BISACODYL 5MG TABLET PO NR (09:45)
[2019-07-13 10:03] LABS: BG BASE EXCESS -0.1 mmol/L (-2.0-2.0); BG CARBOXYHEMOGLOBIN 0.3 % (0.5-1.5); BG DEOXYHEMOGLOBIN 0.9 % (0.0-5.0); BG FRACTION INSPIRED OXYGEN 40; BG HCO3 ACT 23.6 mmol/L (22.0-26.0); BG METHEMOGLOBIN 0.1 % (0.0-1.5); BG OXYGEN SATURATION 99.1 % (92.0-98.5); BG OXYHEMOGLOBIN 98.7 % (94.0-97.0); BG PCO2 33.9 mmHg (35.0-45.0); BG PO2 182.4 mmHg (75.0-100.0); BG SAMPLE SITE RIGHT RADIAL; BG TIDAL VOLUME(mL) 450 mL; BG TOTAL HEMOGLOBIN 8.3 g/dL (12.0-18.0); BG VENT MODE VENT - A/C; BG VENT RATE 12 set
[2019-07-13 11:30] LABS: TOTAL IRON BINDING CAPACITY 175 ug/dL (250-450)
[2019-07-13 11:34] LABS: D-DIMER 7.78 mg/L FEU (<0.50); PROTHROMBIN TIME 10.8 sec (9.6-11.0)
[2019-07-14] VITALS (41 sets, daily range): BP systolic 91–149; BP diastolic 60–93
[2019-07-14] MEDS: BLOOD SUGAR DIAGNOSTIC STRIP TEST SCH ×4 (00:29→17:41)
[2019-07-14 05:38] LABS: BASOPHILS % 0.4 % (0.0-2.0); EOSINOPHILS % 1.6 % (0.0-5.0); HEMATOCRIT. 24.1 % (36.0-48.0); HEMOGLOBIN. 8.2 g/dL (12.0-16.0); LYMPHOCYTES % 12.4 % (20.0-50.0); MEAN CORPUSCULAR HEMOGLOBIN 30.1 pg (28.0-32.0); MEAN CORPUSCULAR VOLUME 88.6 fL (81.0-99.0); MEAN PLATELET VOLUME 8.9 fl (7.4-10.4); MONOCYTES % 6.2 % (2.0-8.0); NEUTROPHILS % 79.4 % (40.0-76.0); PLATELET 251 x1000/uL (130-400); RED BLOOD CELL COUNT 2.72 mill/uL (4.2-5.4); RED CELL DISTRIBUTION WIDTH 13.7 % (11.6-14.6)
[2019-07-14] MEDS: INSULIN LISPRO 100 UNITS/ML SUBCUT SCH ×4 (06:00→17:45)
[2019-07-14 06:06] LABS: CHLORIDE 110 mEq/L (98-107)
[2019-07-14 06:17] LABS: PHOSPHORUS 2.3 mg/dL (2.5-4.9)
[2019-07-14 06:25] LABS: FOLIC ACID (FOLATE) SERUM >20 ng/mL ng/mL (>5.38)
[2019-07-14 06:37] LABS: VITAMIN B12 SERUM 180 pg/mL (211-911)
[2019-07-14 08:26] LABS: BG BASE EXCESS 0.3 mmol/L (-2.0-2.0); BG CARBOXYHEMOGLOBIN 0.3 % (0.5-1.5); BG OXYHEMOGLOBIN 98.7 % (94.0-97.0); BG PCO2 35.2 mmHg (35.0-45.0); BG PH 7.452 (7.350-7.450); BG PO2 154.5 mmHg (75.0-100.0); BG SAMPLE SITE RIGHT RADIAL; BG TIDAL VOLUME(mL) 500 mL; BG TOTAL HEMOGLOBIN 8.9 g/dL (12.0-18.0); BG VENT MODE VENT - SIMV; BG VENT RATE 8 set
[2019-07-14] MEDS: PANTOPRAZOLE SODIUM 40 MG/VIAL IV SCH ×2 (09:00→21:01)
[2019-07-14] MEDS: HYDROXYCHLOROQUINE SULFATE 200MG TABLET PO SCH ×2 (09:00→21:02)
[2019-07-14] MEDS: CYANOCOBALAMIN 1000MCG/ML VIAL IM SCH (11:00)
[2019-07-14] MEDS ORDERED: POTASSIUM PHOS,M-BASIC-D-BASIC 20 MMOL in DEXT 5% WATER 243.3333 ML IV SCH (11:30)
[2019-07-14 17:25] LABS: BG BASE EXCESS -2.5 mmol/L (-2.0-2.0); BG CARBOXYHEMOGLOBIN 0.1 % (0.5-1.5); BG CPAP (cmH2O) 0 cm(H2O); BG DEOXYHEMOGLOBIN 1.9 % (0.0-5.0); BG HCO3 ACT 21.3 mmol/L (22.0-26.0); BG METHEMOGLOBIN 1.1 % (0.0-1.5); BG OXYGEN SATURATION 98.1 % (92.0-98.5); BG OXYHEMOGLOBIN 96.9 % (94.0-97.0); BG PCO2 32.8 mmHg (35.0-45.0); BG PO2 123.4 mmHg (75.0-100.0); BG SAMPLE SITE RIGHT RADIAL; BG TOTAL HEMOGLOBIN 9.6 g/dL (12.0-18.0); BG VENT MODE VENT - CPAP
[2019-07-14] MEDS: FERROUS SULFATE 325MG TABLET PO SCH (21:02)
[2019-07-14] MEDS: LACTOBACILLUS GG CAPSULE PO SCH (21:22)
[2019-07-15] VITALS (47 sets, daily range): BP systolic 93–139; BP diastolic 61–99
[2019-07-15 06:05] LABS: CHLORIDE 108 mEq/L (98-107)
[2019-07-15 06:12] LABS: PHOSPHORUS 2.8 mg/dL (2.5-4.9)
[2019-07-15 06:15] LABS: BASOPHILS % 0.5 % (0.0-2.0); EOSINOPHILS % 1.6 % (0.0-5.0); HEMATOCRIT. 27.2 % (36.0-48.0); HEMOGLOBIN. 9.3 g/dL (12.0-16.0); LYMPHOCYTES % 17.6 % (20.0-50.0); MEAN CORPUSCULAR HEMOGLOBIN 29.9 pg (28.0-32.0); MEAN CORPUSCULAR VOLUME 87.8 fL (81.0-99.0); MEAN PLATELET VOLUME 8.8 fl (7.4-10.4); MONOCYTES % 6.9 % (2.0-8.0); NEUTROPHILS % 73.4 % (40.0-76.0); PLATELET 189 x1000/uL (130-400)
[2019-07-15] MEDS: CYANOCOBALAMIN 1000MCG/ML VIAL IM SCH (09:33)
[2019-07-15 09:34] LABS: BG BASE EXCESS -0.6 mmol/L (-2.0-2.0); BG CARBOXYHEMOGLOBIN 0.1 % (0.5-1.5); BG DEOXYHEMOGLOBIN 0.8 % (0.0-5.0); BG FRACTION INSPIRED OXYGEN 40; BG HCO3 ACT 22.8 mmol/L (22.0-26.0); BG METHEMOGLOBIN 0.3 % (0.0-1.5); BG OXYGEN SATURATION 99.2 % (92.0-98.5); BG OXYHEMOGLOBIN 98.8 % (94.0-97.0); BG PCO2 32.4 mmHg (35.0-45.0); BG PH 7.466 (7.350-7.450); BG PO2 173.2 mmHg (75.0-100.0); BG PRESSURE SUPPORT 12; BG SAMPLE SITE RIGHT RADIAL; BG TIDAL VOLUME(mL) 500 mL; BG TOTAL HEMOGLOBIN 8.3 g/dL (12.0-18.0); BG VENT MODE VENT - SIMV; BG VENT RATE 8 set
[2019-07-15] MEDS: LACTOBACILLUS GG CAPSULE PO SCH (09:34)
[2019-07-15] MEDS: PANTOPRAZOLE SODIUM 40 MG/VIAL IV SCH ×2 (09:35→21:43)
[2019-07-15] MEDS: HYDROXYCHLOROQUINE SULFATE 200MG TABLET PO SCH ×2 (09:35→21:43)
[2019-07-15] MEDS: FERROUS SULFATE 325MG TABLET PO SCH ×2 (09:35→21:42)
[2019-07-15] MEDS ORDERED: POTASSIUM CHLORIDE 20MEQ TABLET SR PO NR (10:45)
[2019-07-15] MEDS ORDERED: FUROSEMIDE 40MG/4ML VIAL IVP NR (10:45)
[2019-07-15] MEDS: DOCUSATE SODIUM 250MG CAPSULE PO SCH (11:00)
[2019-07-15] MEDS ORDERED: PROPOFOL 10MG/ML 100ML 100 ML IV PRN (11:00)
[2019-07-15] MEDS: BLOOD SUGAR DIAGNOSTIC STRIP TEST SCH ×3 (12:00→18:00)
[2019-07-15] MEDS: INSULIN LISPRO 100 UNITS/ML SUBCUT SCH ×2 (12:00)
[2019-07-15] MEDS ORDERED: ACETAMINOPHEN 650MG/20.3ML UDC PO PRN (21:30)
[2019-07-15 22:31] LABS: BG BASE EXCESS 2.2 mmol/L (-2.0-2.0); BG CARBOXYHEMOGLOBIN 0.7 % (0.5-1.5); BG DEOXYHEMOGLOBIN 2.2 % (0.0-5.0); BG FRACTION INSPIRED OXYGEN 40; BG HCO3 ACT 25.2 mmol/L (22.0-26.0); BG METHEMOGLOBIN 0.2 % (0.0-1.5); BG OXYGEN SATURATION 97.8 % (92.0-98.5); BG OXYHEMOGLOBIN 96.9 % (94.0-97.0); BG PCO2 30.9 mmHg (35.0-45.0); BG PO2 99.3 mmHg (75.0-100.0); BG PRESSURE SUPPORT 12; BG SAMPLE SITE RIGHT RADIAL; BG TIDAL VOLUME(mL) 450 mL; BG TOTAL HEMOGLOBIN 5.3 g/dL (12.0-18.0); BG VENT MODE VENT - SIMV; BG VENT RATE 8 set
[2019-07-16] VITALS (36 sets, daily range): BP systolic 87–130; BP diastolic 56–82
[2019-07-16] MEDS: BLOOD SUGAR DIAGNOSTIC STRIP TEST SCH ×5 (00:18→23:50)
[2019-07-16 05:41] LABS: BASOPHILS % 0.3 % (0.0-2.0); EOSINOPHILS % 0.6 % (0.0-5.0); HEMATOCRIT. 26.8 % (36.0-48.0); HEMOGLOBIN. 8.9 g/dL (12.0-16.0); LYMPHOCYTES % 11.9 % (20.0-50.0); MEAN CORPUSCULAR HEMOGLOBIN 29.2 pg (28.0-32.0); MEAN CORPUSCULAR VOLUME 87.6 fL (81.0-99.0); MEAN PLATELET VOLUME 7.8 fl (7.4-10.4); MONOCYTES % 5.6 % (2.0-8.0); NEUTROPHILS % 81.6 % (40.0-76.0); PLATELET 407 x1000/uL (130-400); RED BLOOD CELL COUNT 3.06 mill/uL (4.2-5.4); RED CELL DISTRIBUTION WIDTH 13.8 % (11.6-14.6)
[2019-07-16 05:48] LABS: CHLORIDE 109 mEq/L (98-107)
[2019-07-16 05:54] LABS: PHOSPHORUS 2.2 mg/dL (2.5-4.9)
[2019-07-16] MEDS: INSULIN LISPRO 100 UNITS/ML SUBCUT SCH ×5 (06:00→23:50)
[2019-07-16 08:35] LABS: BG CARBOXYHEMOGLOBIN 0.4 % (0.5-1.5); BG DEOXYHEMOGLOBIN 8.5 % (0.0-5.0); BG FRACTION INSPIRED OXYGEN 50; BG HCO3 ACT 21.8 mmol/L (22.0-26.0); BG METHEMOGLOBIN 0.2 % (0.0-1.5); BG OXYGEN SATURATION 91.4 % (92.0-98.5); BG OXYHEMOGLOBIN 90.9 % (94.0-97.0); BG PCO2 26.5 mmHg (35.0-45.0); BG PH 7.534 (7.350-7.450); BG PO2 54.9 mmHg (75.0-100.0); BG SAMPLE SITE RIGHT RADIAL; BG TIDAL VOLUME(mL) 450 mL; BG TOTAL HEMOGLOBIN 9.9 g/dL (12.0-18.0); BG VENT MODE VENT - A/C; BG VENT RATE 12 set
[2019-07-16] MEDS: DOCUSATE SODIUM 250MG CAPSULE PO SCH (09:00)
[2019-07-16] MEDS: CYANOCOBALAMIN 1000MCG/ML VIAL IM SCH (09:52)
[2019-07-16] MEDS: FERROUS SULFATE 325MG TABLET PO SCH ×2 (09:52→21:55)
[2019-07-16] MEDS: PANTOPRAZOLE SODIUM 40 MG/VIAL IV SCH ×2 (09:52→21:55)
[2019-07-16] MEDS: LACTOBACILLUS GG CAPSULE PO SCH (09:52)
[2019-07-16] MEDS ORDERED: POTASSIUM CHLORIDE INJ 40 MEQ in DEXT 5% WATER 250 ML IV SCH (13:00)
[2019-07-16] MEDS ORDERED: POTASSIUM PHOS,M-BASIC-D-BASIC 20 MMOL in DEXT 5% WATER 243.3333 ML IV SCH (13:00)
[2019-07-16] MEDS: CEFEPIME 1,000 MG in DEXTROSE 5% WATER 50 ML IV SCH (18:00)
[2019-07-17] VITALS (25 sets, daily range): BP systolic 85–130; BP diastolic 56–87
[2019-07-17 05:26] LABS: BASOPHILS % 0.2 % (0.0-2.0); EOSINOPHILS % 0.7 % (0.0-5.0); HEMATOCRIT. 25.2 % (36.0-48.0); HEMOGLOBIN. 8.3 g/dL (12.0-16.0); LYMPHOCYTES % 12.4 % (20.0-50.0); MEAN CORPUSCULAR HEMOGLOBIN 29.1 pg (28.0-32.0); MEAN CORPUSCULAR VOLUME 88.1 fL (81.0-99.0); MEAN PLATELET VOLUME 7.9 fl (7.4-10.4); MONOCYTES % 3.5 % (2.0-8.0); NEUTROPHILS % 83.2 % (40.0-76.0); PLATELET 393 x1000/uL (130-400); RED BLOOD CELL COUNT 2.86 mill/uL (4.2-5.4); RED CELL DISTRIBUTION WIDTH 14.2 % (11.6-14.6)
[2019-07-17] MEDS: CEFEPIME 1,000 MG in DEXTROSE 5% WATER 50 ML IV SCH ×2 (05:38→18:00)
[2019-07-17 05:48] LABS: CHLORIDE 109 mEq/L (98-107)
[2019-07-17 05:54] LABS: PHOSPHORUS 3.1 mg/dL (2.5-4.9)
[2019-07-17] MEDS: INSULIN LISPRO 100 UNITS/ML SUBCUT SCH ×4 (06:00→23:42)
[2019-07-17] MEDS: BLOOD SUGAR DIAGNOSTIC STRIP TEST SCH ×4 (06:40→23:41)
[2019-07-17] MEDS: DOCUSATE SODIUM 250MG CAPSULE PO SCH (08:27)
[2019-07-17] MEDS: CYANOCOBALAMIN 1000MCG/ML VIAL IM SCH (09:18)
[2019-07-17] MEDS: PANTOPRAZOLE SODIUM 40 MG/VIAL IV SCH ×2 (09:18→21:59)
[2019-07-17] MEDS: LACTOBACILLUS GG CAPSULE PO SCH (09:19)
[2019-07-17] MEDS: FERROUS SULFATE 325MG TABLET PO SCH ×2 (09:19→21:59)
[2019-07-18] VITALS (24 sets, daily range): BP systolic 98–141; BP diastolic 66–83
[2019-07-18] MEDS: INSULIN LISPRO 100 UNITS/ML SUBCUT SCH ×4 (06:00→23:49)
[2019-07-18 06:18] LABS: BASOPHILS % 0.2 % (0.0-2.0); EOSINOPHILS % 0.9 % (0.0-5.0); HEMATOCRIT. 26.6 % (36.0-48.0); HEMOGLOBIN. 8.7 g/dL (12.0-16.0); MEAN CORPUSCULAR HEMOGLOBIN 29.1 pg (28.0-32.0); MEAN CORPUSCULAR VOLUME 88.6 fL (81.0-99.0); MONOCYTES % 3.6 % (2.0-8.0); NEUTROPHILS % 83.3 % (40.0-76.0); PLATELET 427 x1000/uL (130-400); RED CELL DISTRIBUTION WIDTH 14.1 % (11.6-14.6)
[2019-07-18 06:24] LABS: CHLORIDE 110 mEq/L (98-107)
[2019-07-18] MEDS: BLOOD SUGAR DIAGNOSTIC STRIP TEST SCH ×4 (06:26→23:49)
[2019-07-18] MEDS: CEFEPIME 1,000 MG in DEXTROSE 5% WATER 50 ML IV SCH ×2 (06:26→18:23)
[2019-07-18] MEDS: DOCUSATE SODIUM 250MG CAPSULE PO SCH (09:00)
[2019-07-18] MEDS ORDERED: POTASSIUM CHLORIDE 20MEQ/PACKET PO SCH (09:00)
[2019-07-18 09:02] LABS: BG BASE EXCESS -1.4 mmol/L (-2.0-2.0); BG CARBOXYHEMOGLOBIN 0.2 % (0.5-1.5); BG DEOXYHEMOGLOBIN 0.8 % (0.0-5.0); BG HCO3 ACT 22.2 mmol/L (22.0-26.0); BG OXYGEN SATURATION 99.2 % (92.0-98.5); BG PCO2 32.4 mmHg (35.0-45.0); BG PH 7.453 (7.350-7.450); BG SAMPLE SITE RIGHT RADIAL; BG TIDAL VOLUME(mL) 450 mL; BG TOTAL HEMOGLOBIN 8.6 g/dL (12.0-18.0); BG VENT MODE VENT - SIMV; BG VENT RATE 8 set
[2019-07-18] MEDS: FERROUS SULFATE 325MG TABLET PO SCH ×2 (09:17→22:01)
[2019-07-18] MEDS: LACTOBACILLUS GG CAPSULE PO SCH (09:17)
[2019-07-18] MEDS: PANTOPRAZOLE SODIUM 40 MG/VIAL IV SCH ×2 (09:17→22:01)
[2019-07-19] VITALS (24 sets, daily range): BP systolic 102–157; BP diastolic 69–90
[2019-07-19] MEDS: CEFEPIME 1,000 MG in DEXTROSE 5% WATER 50 ML IV SCH (05:41)
[2019-07-19 05:46] LABS: BASOPHILS % 0.7 % (0.0-2.0); EOSINOPHILS % 1.2 % (0.0-5.0); HEMATOCRIT. 26.5 % (36.0-48.0); HEMOGLOBIN. 8.8 g/dL (12.0-16.0); LYMPHOCYTES % 14.4 % (20.0-50.0); MEAN CORPUSCULAR HEMOGLOBIN 29.4 pg (28.0-32.0); MEAN CORPUSCULAR VOLUME 88.4 fL (81.0-99.0); MEAN PLATELET VOLUME 7.6 fl (7.4-10.4); MONOCYTES % 4.4 % (2.0-8.0); NEUTROPHILS % 79.3 % (40.0-76.0); PLATELET 498 x1000/uL (130-400); RED BLOOD CELL COUNT 2.99 mill/uL (4.2-5.4)
[2019-07-19 05:50] LABS: CHLORIDE 109 mEq/L (98-107)
[2019-07-19] MEDS: INSULIN LISPRO 100 UNITS/ML SUBCUT SCH ×3 (06:00→18:00)
[2019-07-19] MEDS: BLOOD SUGAR DIAGNOSTIC STRIP TEST SCH ×3 (06:48→18:04)
[2019-07-19] MEDS: DOCUSATE SODIUM 250MG CAPSULE PO SCH (09:00)
[2019-07-19] MEDS: LACTOBACILLUS GG CAPSULE PO SCH (09:06)
[2019-07-19] MEDS: PANTOPRAZOLE SODIUM 40 MG/VIAL IV SCH ×2 (09:06→21:24)
[2019-07-19] MEDS: FERROUS SULFATE 325MG TABLET PO SCH ×2 (09:06→21:24)
[2019-07-19 09:57] LABS: BG BASE EXCESS 1.4 mmol/L (-2.0-2.0); BG CARBOXYHEMOGLOBIN 0.2 % (0.5-1.5); BG DEOXYHEMOGLOBIN 1.4 % (0.0-5.0); BG FRACTION INSPIRED OXYGEN 40; BG HCO3 ACT 24.5 mmol/L (22.0-26.0); BG METHEMOGLOBIN 0.1 % (0.0-1.5); BG OXYGEN SATURATION 98.6 % (92.0-98.5); BG OXYHEMOGLOBIN 98.3 % (94.0-97.0); BG PCO2 32.8 mmHg (35.0-45.0); BG PH 7.491 (7.350-7.450); BG PO2 127.8 mmHg (75.0-100.0); BG PRESSURE SUPPORT 12; BG SAMPLE SITE RIGHT RADIAL; BG TIDAL VOLUME(mL) 450 mL; BG VENT MODE VENT - SIMV; BG VENT RATE 8 set
[2019-07-19 14:01] LABS: BG BASE EXCESS 0.8 mmol/L (-2.0-2.0); BG CARBOXYHEMOGLOBIN 0.3 % (0.5-1.5); BG DEOXYHEMOGLOBIN 1.1 % (0.0-5.0); BG FRACTION INSPIRED OXYGEN 50; BG HCO3 ACT 24.4 mmol/L (22.0-26.0); BG METHEMOGLOBIN 0.3 % (0.0-1.5); BG OXYGEN SATURATION 98.9 % (92.0-98.5); BG OXYHEMOGLOBIN 98.3 % (94.0-97.0); BG PH 7.461 (7.350-7.450); BG PO2 140.6 mmHg (75.0-100.0); BG SAMPLE SITE RIGHT RADIAL; BG TOTAL HEMOGLOBIN 9.4 g/dL (12.0-18.0); BG VENT MODE T-TUBE
[2019-07-19] MEDS: LEVOFLOXACIN 500MG PREMIX 100 ML IV SCH (18:15)
[2019-07-20] MEDS: BLOOD SUGAR DIAGNOSTIC STRIP TEST SCH ×4 (00:55→18:00)
[2019-07-20 04:00] VITALS: BP 134/69
[2019-07-20 08:00] VITALS: BP 113/70
[2019-07-20 08:45] LABS: BASOPHILS % 1.1 % (0.0-2.0); CHLORIDE 105 mEq/L (98-107); EOSINOPHILS % 0.9 % (0.0-5.0); HEMATOCRIT. 26.7 % (36.0-48.0); HEMOGLOBIN. 8.6 g/dL (12.0-16.0); LYMPHOCYTES % 14.7 % (20.0-50.0); MEAN CORPUSCULAR HEMOGLOBIN 28.5 pg (28.0-32.0); MEAN CORPUSCULAR VOLUME 88.8 fL (81.0-99.0); MEAN PLATELET VOLUME 7.8 fl (7.4-10.4); MONOCYTES % 4.8 % (2.0-8.0); NEUTROPHILS % 78.5 % (40.0-76.0); PLATELET 462 x1000/uL (130-400); RED BLOOD CELL COUNT 3.01 mill/uL (4.2-5.4); RED CELL DISTRIBUTION WIDTH 13.9 % (11.6-14.6)
[2019-07-20] MEDS: LACTOBACILLUS GG CAPSULE PO SCH (09:15)
[2019-07-20] MEDS: FERROUS SULFATE 325MG TABLET PO SCH ×2 (09:15→21:20)
[2019-07-20] MEDS: DOCUSATE SODIUM 250MG CAPSULE PO SCH (09:15)
[2019-07-20] MEDS: PANTOPRAZOLE SODIUM 40 MG/VIAL IV SCH ×2 (10:18→21:20)
[2019-07-20 12:00] VITALS: BP 119/90
[2019-07-20] MEDS: INSULIN LISPRO 100 UNITS/ML SUBCUT SCH ×3 (12:00→18:00)
[2019-07-20] MEDS ORDERED: LOPERAMIDE HCL 2MG CAPSULE PO PRN (13:45)
[2019-07-20 16:00] VITALS: BP 132/73
[2019-07-20] MEDS: LEVOFLOXACIN 500MG PREMIX 100 ML IV SCH (17:56)
[2019-07-20 20:00] VITALS: BP 120/80
[2019-07-21] VITALS: BP 123/88
[2019-07-21 04:00] VITALS: BP 126/80
[2019-07-21] MEDS: BLOOD SUGAR DIAGNOSTIC STRIP TEST SCH ×4 (05:44→18:02)
[2019-07-21] MEDS: INSULIN LISPRO 100 UNITS/ML SUBCUT SCH ×4 (05:55→18:00)
[2019-07-21 06:39] LABS: BASOPHILS % 0.6 % (0.0-2.0); EOSINOPHILS % 1.1 % (0.0-5.0); HEMATOCRIT. 27.7 % (36.0-48.0); HEMOGLOBIN. 9.4 g/dL (12.0-16.0); LYMPHOCYTES % 15.5 % (20.0-50.0); MEAN CORPUSCULAR HEMOGLOBIN 29.8 pg (28.0-32.0); MEAN CORPUSCULAR VOLUME 88.4 fL (81.0-99.0); MEAN PLATELET VOLUME 7.4 fl (7.4-10.4); NEUTROPHILS % 76.8 % (40.0-76.0); PLATELET 534 x1000/uL (130-400); RED BLOOD CELL COUNT 3.14 mill/uL (4.2-5.4); RED CELL DISTRIBUTION WIDTH 14.3 % (11.6-14.6)
[2019-07-21 06:43] LABS: CHLORIDE 106 mEq/L (98-107)
[2019-07-21 08:00] VITALS: BP 117/80
[2019-07-21] MEDS: PANTOPRAZOLE SODIUM 40 MG/VIAL IV SCH ×2 (11:00→21:16)
[2019-07-21] MEDS: DOCUSATE SODIUM 250MG CAPSULE PO SCH (11:00)
[2019-07-21] MEDS: FERROUS SULFATE 325MG TABLET PO SCH ×2 (11:00→21:16)
[2019-07-21] MEDS: LACTOBACILLUS GG CAPSULE PO SCH (11:01)
[2019-07-21 12:00] VITALS: BP 125/81
[2019-07-21] MEDS: METOPROLOL TARTRATE 25MG TABLET PO SCH ×2 (13:18→21:16)
[2019-07-21 16:02] VITALS: BP 126/87
[2019-07-21] MEDS: LEVOFLOXACIN 500MG PREMIX 100 ML IV SCH (16:28)
[2019-07-21 20:00] VITALS: BP 115/76
[2019-07-22 00:05] VITALS: BP 117/83
[2019-07-22 04:00] VITALS: BP 107/71
[2019-07-22] MEDS: INSULIN LISPRO 100 UNITS/ML SUBCUT SCH ×2 (06:00)
[2019-07-22] MEDS: BLOOD SUGAR DIAGNOSTIC STRIP TEST SCH ×4 (06:00→18:39)
[2019-07-22 08:00] VITALS: BP 102/72
[2019-07-22] MEDS: PANTOPRAZOLE SODIUM 40 MG/VIAL IV SCH ×2 (11:50→20:15)
[2019-07-22] MEDS: FERROUS SULFATE 325MG TABLET PO SCH ×2 (11:51→20:16)
[2019-07-22] MEDS: DOCUSATE SODIUM 250MG CAPSULE PO SCH (11:51)
[2019-07-22] MEDS: LACTOBACILLUS GG CAPSULE PO SCH (11:51)
[2019-07-22 12:00] VITALS: BP 102/73
[2019-07-22] MEDS: METOPROLOL TARTRATE 25MG TABLET PO SCH ×2 (12:23→20:16)
[2019-07-22 16:00] VITALS: BP 100/74
[2019-07-22] MEDS: LEVOFLOXACIN 500MG PREMIX 100 ML IV SCH (18:29)
[2019-07-22 20:05] VITALS: BP 100/71
[2019-07-23 00:05] VITALS: BP 111/79
[2019-07-23 04:00] VITALS: BP 127/86
[2019-07-23] MEDS: BLOOD SUGAR DIAGNOSTIC STRIP TEST SCH ×4 (05:33→18:34)
[2019-07-23] MEDS: INSULIN LISPRO 100 UNITS/ML SUBCUT SCH ×4 (05:34→18:00)
[2019-07-23 07:01] LABS: BASOPHILS % 0.8 % (0.0-2.0); EOSINOPHILS % 2.4 % (0.0-5.0); HEMATOCRIT. 28.5 % (36.0-48.0); HEMOGLOBIN. 9.4 g/dL (12.0-16.0); LYMPHOCYTES % 15.1 % (20.0-50.0); MEAN CORPUSCULAR HEMOGLOBIN 28.8 pg (28.0-32.0); MEAN CORPUSCULAR VOLUME 87.6 fL (81.0-99.0); MEAN PLATELET VOLUME 7.6 fl (7.4-10.4); MONOCYTES % 6.3 % (2.0-8.0); NEUTROPHILS % 75.4 % (40.0-76.0); PLATELET 441 x1000/uL (130-400); RED BLOOD CELL COUNT 3.25 mill/uL (4.2-5.4); RED CELL DISTRIBUTION WIDTH 14.3 % (11.6-14.6)
[2019-07-23 07:08] LABS: CHLORIDE 105 mEq/L (98-107)
[2019-07-23 08:00] VITALS: BP_SYST 133; BP_DIAS 83; BP_DIAS 85
[2019-07-23] MEDS: FERROUS SULFATE 325MG TABLET PO SCH ×2 (10:08→21:07)
[2019-07-23] MEDS: DOCUSATE SODIUM 250MG CAPSULE PO SCH (10:09)
[2019-07-23] MEDS: LACTOBACILLUS GG CAPSULE PO SCH (10:09)
[2019-07-23] MEDS: PANTOPRAZOLE SODIUM 40 MG/VIAL IV SCH ×2 (10:10→21:08)
[2019-07-23] MEDS: METOPROLOL TARTRATE 25MG TABLET PO SCH ×2 (10:12→21:08)
[2019-07-23 12:00] VITALS: BP 107/73
[2019-07-23] MEDS ORDERED: ACETAMINOPHEN 650MG/20.3ML UDC GT PRN (14:00)
[2019-07-23 16:00] VITALS: BP 100/67
[2019-07-23] MEDS: LEVOFLOXACIN 500MG PREMIX 100 ML IV SCH (18:38)
[2019-07-23 20:00] VITALS: BP 143/87
[2019-07-24 00:05] VITALS: BP 120/78
[2019-07-24 04:00] VITALS: BP 132/87
[2019-07-24] MEDS: BLOOD SUGAR DIAGNOSTIC STRIP TEST SCH ×4 (05:14→17:22)
[2019-07-24] MEDS: INSULIN LISPRO 100 UNITS/ML SUBCUT SCH ×4 (05:14→17:22)
[2019-07-24 06:36] LABS: BASOPHILS % 0.8 % (0.0-2.0); EOSINOPHILS % 3.6 % (0.0-5.0); HEMATOCRIT. 28.4 % (36.0-48.0); HEMOGLOBIN. 9.3 g/dL (12.0-16.0); LYMPHOCYTES % 12.5 % (20.0-50.0); MEAN CORPUSCULAR VOLUME 88.4 fL (81.0-99.0); MEAN PLATELET VOLUME 7.8 fl (7.4-10.4); MONOCYTES % 6.6 % (2.0-8.0); NEUTROPHILS % 76.5 % (40.0-76.0); PLATELET 397 x1000/uL (130-400); RED BLOOD CELL COUNT 3.22 mill/uL (4.2-5.4); RED CELL DISTRIBUTION WIDTH 14.4 % (11.6-14.6)
[2019-07-24 06:56] LABS: CHLORIDE 105 mEq/L (98-107)
[2019-07-24 08:00] VITALS: BP 120/76
[2019-07-24] MEDS: DOCUSATE SODIUM 250MG CAPSULE PO SCH (09:17)
[2019-07-24] MEDS: LACTOBACILLUS GG CAPSULE PO SCH (09:17)
[2019-07-24] MEDS: METOPROLOL TARTRATE 25MG TABLET PO SCH ×2 (09:18→22:46)
[2019-07-24] MEDS: PANTOPRAZOLE SODIUM 40 MG/VIAL IV SCH ×2 (10:39→22:46)
[2019-07-24] MEDS: FERROUS SULFATE 325MG TABLET PO SCH (10:39)
[2019-07-24 12:00] VITALS: BP 114/75
[2019-07-24] MEDS ORDERED: ACETAMINOPHEN 325MG TABLET PO PRN (13:00)
[2019-07-24 16:00] VITALS: BP 118/74
[2019-07-24] MEDS: LEVOFLOXACIN 500MG PREMIX 100 ML IV SCH (16:26)
[2019-07-24 20:00] VITALS: BP 122/81
[2019-07-24] MEDS: FERROUS SULFATE 300MG/5ML UDC GT SCH (23:00)
[2019-07-25] VITALS: BP 123/74
[2019-07-25 04:00] VITALS: BP 109/78
[2019-07-25] MEDS: BLOOD SUGAR DIAGNOSTIC STRIP TEST SCH ×5 (05:24→23:59)
[2019-07-25] MEDS: INSULIN LISPRO 100 UNITS/ML SUBCUT SCH ×5 (05:24→23:59)
[2019-07-25 08:00] VITALS: BP 105/74
[2019-07-25] MEDS: DOCUSATE SODIUM 250MG CAPSULE PO SCH (08:48)
[2019-07-25] MEDS: METOPROLOL TARTRATE 25MG TABLET PO SCH ×2 (08:48→21:00)
[2019-07-25] MEDS: LACTOBACILLUS GG CAPSULE PO SCH (08:48)
[2019-07-25] MEDS: PANTOPRAZOLE SODIUM 40 MG/VIAL IV SCH ×2 (10:07→21:43)
[2019-07-25] MEDS: FERROUS SULFATE 300MG/5ML UDC GT SCH ×2 (10:08→21:43)
[2019-07-25 12:00] VITALS: BP 125/82
[2019-07-25 16:00] VITALS: BP 139/88
[2019-07-25 20:00] VITALS: BP 103/73
[2019-07-26] VITALS: BP 123/73
[2019-07-26 02:59] LABS: CLARITY URINE CLEAR (CLEAR); COLOR URINE YELLOW (YELLOW); KETONES URINE NEGATIVE (NEGATIVE); LEUKOCYTE ESTERASE URINE 1+ (NEGATIVE); NITRITE URINE NEGATIVE (NEGATIVE); OCCULT BLOOD URINE NEGATIVE (NEGATIVE); PROTEIN URINE NEGATIVE (NEGATIVE); SPECIFIC GRAVITY URINE 1.023 (1.005-1.030)
[2019-07-26 04:00] VITALS: BP 104/71
[2019-07-26] MEDS: BLOOD SUGAR DIAGNOSTIC STRIP TEST SCH ×4 (05:54→23:47)
[2019-07-26] MEDS: INSULIN LISPRO 100 UNITS/ML SUBCUT SCH ×3 (05:54→18:25)
[2019-07-26 08:00] VITALS: BP 108/78
[2019-07-26] MEDS: METOPROLOL TARTRATE 25MG TABLET PO SCH ×2 (09:00→21:00)
[2019-07-26] MEDS: LACTOBACILLUS GG CAPSULE PO SCH (09:42)
[2019-07-26] MEDS: DOCUSATE SODIUM 250MG CAPSULE PO SCH (09:42)
[2019-07-26] MEDS: PANTOPRAZOLE SODIUM 40 MG/VIAL IV SCH ×2 (09:42→23:27)
[2019-07-26] MEDS: FERROUS SULFATE 300MG/5ML UDC GT SCH ×2 (09:42→23:27)
[2019-07-26 12:00] VITALS: BP 110/75
[2019-07-26 16:00] VITALS: BP 111/70
[2019-07-26 20:00] VITALS: BP 96/68
[2019-07-27] VITALS: BP 108/74
[2019-07-27 04:00] VITALS: BP 105/79
[2019-07-27] MEDS: BLOOD SUGAR DIAGNOSTIC STRIP TEST SCH ×2 (06:00→12:24)
[2019-07-27] MEDS: INSULIN LISPRO 100 UNITS/ML SUBCUT SCH ×3 (06:00→12:29)
[2019-07-27 07:12] LABS: HEMATOCRIT. 31.3 % (36.0-48.0); HEMOGLOBIN. 10.2 g/dL (12.0-16.0); MEAN CORPUSCULAR HEMOGLOBIN 28.6 pg (28.0-32.0); MEAN CORPUSCULAR VOLUME 87.5 fL (81.0-99.0); MEAN PLATELET VOLUME 8.4 fl (7.4-10.4); PLATELET 397 x1000/uL (130-400); RED BLOOD CELL COUNT 3.58 mill/uL (4.2-5.4); RED CELL DISTRIBUTION WIDTH 14.4 % (11.6-14.6)
[2019-07-27 07:20] LABS: CHLORIDE 105 mEq/L (98-107)
[2019-07-27 08:00] VITALS: BP 144/91
[2019-07-27 08:10] VITALS: BP 144/92
[2019-07-27] MEDS: METOPROLOL TARTRATE 25MG TABLET PO SCH (08:28)
[2019-07-27] MEDS: LACTOBACILLUS GG CAPSULE PO SCH (08:28)
[2019-07-27] MEDS: DOCUSATE SODIUM 250MG CAPSULE PO SCH (08:28)
[2019-07-27] MEDS: PANTOPRAZOLE SODIUM 40 MG/VIAL IV SCH (08:28)
[2019-07-27] MEDS: FERROUS SULFATE 300MG/5ML UDC GT SCH (08:29)
[2019-07-27 12:00] VITALS: BP 128/74
[2019-07-27 12:17] LABS: PLATELET ESTIMATE NORMAL
[2019-07-27] MEDS ORDERED: POTASSIUM CHLORIDE 20MEQ/PACKET PO SCH (13:15)
== END 2019-07-27 14:06 | disposition expired | DRG 870 ==
LOC: ER 11:09 → EDBEDREQSVC 11:28 → EEVIPCON 12:57 → MICUNO 12:57 → EDBEDREQ 12:59 → ENRESERV 22:21 → 7WST 07-19 22:39
PROVIDERS: ADMIT Internal Medicine; ATTEND Internal Medicine
PROC: 5A1955Z Respiratory Ventilation, Greater than 96 Consecutive Hours (ICD-10-PCS; principal; 2019-07-08)
PROC: 0BH17EZ Insertion of Endotracheal Airway into Trachea, Via Natural or Artificial Opening (ICD-10-PCS; 2019-07-08)
PROC: 05HY33Z Insertion of Infusion Device into Upper Vein, Percutaneous Approach (ICD-10-PCS; 2019-07-10)
PROC: B54MZZA Ultrasonography of Right Upper Extremity Veins, Guidance (ICD-10-PCS; 2019-07-10)
DX: A41.89 Other specified sepsis (principal); U07.1 COVID-19; J96.01 Acute respiratory failure with hypoxia; R65.21 Severe sepsis with septic shock; E43 Unspecified severe protein-calorie malnutrition; K57.91 Diverticulosis of intestine, part unspecified, without perforation or abscess with bleeding; J69.0 Pneumonitis due to inhalation of food and vomit; J12.89 Other viral pneumonia; I50.32 Chronic diastolic (congestive) heart failure; N39.0 Urinary tract infection, site not specified; I13.0 Hypertensive heart and chronic kidney disease with heart failure and stage 1 through stage 4 chronic kidney disease, or unspecified chronic kidney disease; E87.3 Alkalosis; G93.40 Encephalopathy, unspecified; A41.50 Gram-negative sepsis, unspecified; R65.20 Severe sepsis without septic shock; D72.810 Lymphocytopenia; R74.0 Nonspecific elevation of levels of transaminase and lactic acid dehydrogenase [LDH]; E87.6 Hypokalemia; I25.10 Atherosclerotic heart disease of native coronary artery without angina pectoris; F03.90 Unspecified dementia, unspecified severity, without behavioral disturbance, psychotic disturbance, mood disturbance, and anxiety; E78.5 Hyperlipidemia, unspecified; Z66 Do not resuscitate; E11.22 Type 2 diabetes mellitus with diabetic chronic kidney disease; E11.65 Type 2 diabetes mellitus with hyperglycemia; E53.8 Deficiency of other specified B group vitamins; G40.909 Epilepsy, unspecified, not intractable, without status epilepticus; I46.9 Cardiac arrest, cause unspecified; N18.9 Chronic kidney disease, unspecified; R13.10 Dysphagia, unspecified; E61.1 Iron deficiency; R62.7 Adult failure to thrive; K21.9 Gastro-esophageal reflux disease without esophagitis; Z87.440 Personal history of urinary (tract) infections; Z93.1 Gastrostomy status; I69.321 Dysphasia following cerebral infarction; Z09 Encounter for follow-up examination after completed treatment for conditions other than malignant neoplasm; Z88.1 Allergy status to other antibiotic agents; Z91.012 Allergy to eggs; Z91.011 Allergy to milk products; Z91.018 Allergy to other foods; Z79.82 Long term (current) use of aspirin; Z88.8 Allergy status to other drugs, medicaments and biological substances
CPT/HCPCS: 36415; 36600; 71045; 76937; 80048; 80053; 80061; 80076; 80202; 81003; 82270; 82375; 82550; 82607; 82728; 82746; 82805; 82962; 83036; 83540; 83550; 83605; 83615; 83735; 83880; 84100; 84145; 84443; 84484; 85025; 85362; 85379; 85384; 86140; 87015; 87045; 87070; 87077; 87106; 87186; 87427; 87449; 87635; 89055; 93005; 94002; 94003; 96365; 99291; C1725; C9113; J0330; J0692; J1815; J1885; J1940; J1956; J2250; J2270; J2543; J3010; J3370; J3420; J3475; J3480; J3490; J7030; J7060